=== PATIENT | male | born 1955 | race Caucasian/White ===

== ENCOUNTER → 2018-08-04 16:54 | Outpatient (CLI) | payer MEDICARE, SELFPAY ==
[2018-08-04 18:00] LABS: Absolute Lymphocyte Count 2.43 X10^3/ul (0.83-4.51); Absolute Neutrophil Count 3.5 X10^3/uL (2.0-7.7); Basophil# 0.06 X10^3/uL; Basophil% 0.9 % (0-1); Eosinophil# 0.19 X10^3/uL; Eosinophils% 2.8 % (0-5); Hematocrit 39.8 % (40-54); Hemoglobin 13.4 g/dl (13.0-16.5); Lymphocyte # 2.43 X10^3/ul (4.0); Lymphocyte % 36.1 % (19-41); Mean Corp Hgb Conc 33.7 g/gl (32-36); Mean Corpuscular Hgb 31.5 pg (27.0-32.0); Mean Corpuscular Volume 93.4 fL (80-94); Mean Platelet Vol. 12.4 fl (6.2-12.0); Monocyte# 0.54 X10^3/uL; Neutrophil # 3.49 X10^3/uL (2.7-7.7); Neutrophil % 51.9 % (47-70); Platelet Count 163 K/mm3 (150-450); RBC Distribution Width CV 13.3 % (11.6-14.6); RBC Distribution Width SD 43.8 fl (35.1-43.9); Red Blood Count 4.26 M/mm3 (4.6-6.2); White Blood Count 6.7 K/mm3 (4.4-11.0)
[2018-08-04 18:07] LABS: POSITIVE COUNT NO; POSITIVE DIFFERENTIAL NO; POSITIVE MORPHOLOGY NO
[2018-08-04 18:30] LABS: Erythrocyte Sedimentation Rate 17 mm/hr (0-20)
[2018-08-04 18:46] LABS: ALB/GLOB Ratio 0.9 RATIO (0.9-2.4); AST(SGOT) 40 U/L (15-37); Alanine Aminotransfer ALT/SGPT 46 U/L (16-61); Albumin, Serum 3.3 g/dL (3.2-5.0); Alkaline Phosphatase 159 U/L (45-117); Anion Gap 8 (5-15); BUN 23 mg/dL (7-18); CPK Total, Creatine Kinase 84 U/L (39-308); Calcium,Total 8.9 mg/dL (8.5-10.1); Chloride 106 mmol/L (98-107); Cholesterol 123 mg/dL (200); Creatinine, Serum 1.28 mg/dL (0.70-1.30); EST Glomerular Filtration Rate 60 mL/min (>60); Est Glom Filt Rate - Afr Amer 73 mL/min (>60); Globulin 3.6 g/dL (2.2-4.2); Glucose 241 mg/dL (74-106); High Density Lipoprotein 24 mg/dL; Protein, Total 6.9 g/dL (6.4-8.2); Sodium Level 142 mmol/L (136-145); Thyroid Stim Hormone (TSH) 1.86 uIU/mL (0.358-3.74); Triglycerides 326 mg/dL; Very Low Density Lipoprotein 65 mg/dL (5-40)
--- OUTSIDE RECORDS SUMMARY | 2018-09-21 02:09 | XMS RPT_ITS ---
:1955 Author Organization [facility] Care Team Providers Name Role Phone PREM BORREGO DO Admitting Unavailable PREM BORREGO DO Attending Unavailable PREM BORREGO DO Primary Care Unavailable HOLDEN HERRERA Consulting Unavailable HOLDEN HERRERA A Referring Unavailable PROVIDER, UNKNOWN Consulting Unavailable AKASH HEATH, AGUSTIN Chino Admitting Unavailable AKASH HEATH, AGUSTIN Chino Attending Unavailable JACQUES KELLEY MD, JOANNE SANTIAGO Consulting Unavailable ZAIN DAVALOS MD Consulting Unavailable NEYDA HEATH, TUCKER Madden Consulting Unavailable AKASH HEATH, AGUSTIN Chino Consulting Unavailable Holden Herrera Attending Unavailable PROBLEMS PROBLEMS DATE TYPE CONDITION / CODE ATTENDING STATUS SOURCE 08/04/2018 Unknown 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 Herrera Active [facility] 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 Repository neurological complication / E11.49(ICD-10) 08/04/2018 Unknown I10 - Essential Holden Herrera Active [facility] (primary) Community hypertension / Hospital I10(ICD-10) Repository 08/04/2018 Unknown E78.5 - SharonHolden veronica Active [facility] Hyperlipidemia, Community unspecified / Hospital E78.5(ICD-10) Repository 08/04/2018 Unknown R53.1 - Weakness / SharonHolden Active [facility] R53.1(ICD-10) Community Hospital Repository 08/04/2018 Unknown M79.10 - Myalgia, SharonHolden Active [facility] unspecified site / Community M79.10(ICD-10) Hospital Repository PROCEDURES PROCEDURES No Procedure Records FoundRESULTS RESULTS LAC Collected: 09/17/2018 Status: F Source: [facility] 12:24 AM [facility] REPOSITORY TYPE CODE TESTS RESULT OUT OF REFERENCE UNITS RANGE LAB LAC(LOINC) 0.2-2.0 mmol/L High Lactic Acid 2.1 Lvl Performed By: #### LAC, NA, TROPI #### [place] [address] NA Collected: 09/17/2018 Status: F Source: [facility] 12:24 AM [facility] REPOSITORY TYPE CODE TESTS RESULT OUT OF REFERENCE UNITS RANGE LAB NA(LOINC) 136-145 mEq/L High Sodium Level 150 Performed By: #### LAC, NA, TROPI #### [place] [address] TROPI Collected: 09/17/2018 Status: F Source: [facility] 12:24 AM [facility] REPOSITORY TYPE CODE TESTS RESULT OUT OF REFERENCE UNITS RANGE LAB TROPI(LOINC 0.000-0.040 ng/mL ) High Troponin I 1.380 Result Comment: Troponin I reference ranges (05/03/14): 0.00-0.040 ng/mL Negative and non-diagnostic. >0.040 ng/mL Consistent with cardiac damage, increased clinical risk and possibility of myocardial infarction. Serial measurements, a rise & fall in test results, clinical history, appropriate symptoms and/or ECG changes may help assess possibility of MO. *Other non-acute coronary syndrome conditions such as CHF, myocarditis, pulmonary emboli, sepsis and cardiac surgery could result in myocardial damage and increased troponin levels. Performed By: #### LAC, NA, TROPI #### [place] [address] LAC Collected: 09/16/2018 Status: F Source: [facility] 6:48 PM [facility] REPOSITORY TYPE CODE TESTS RESULT OUT OF REFERENCE UNITS RANGE LAB LAC(LOINC) 0.2-2.0 mmol/L Lactic Acid 1.2 Lvl Performed By: #### LAC, NA, TROPI #### [place] [address] NA Collected: 09/16/2018 Status: F Source: [facility] 6:48 PM [facility] REPOSITORY TYPE CODE TESTS RESULT OUT OF REFERENCE UNITS RANGE LAB NA(LOINC) 136-145 mEq/L High Sodium Level 152 Performed By: #### LAC, NA, TROPI #### [address] [address] TROPI Collected: 09/16/2018 Status: F Source: [facility] 6:48 PM [facility] REPOSITORY TYPE CODE TESTS RESULT OUT OF REFERENCE UNITS RANGE LAB TROPI(LOINC 0.000-0.040 ng/mL ) High Troponin I 1.520 Result Comment: Troponin I reference ranges (05/03/14): 0.00-0.040 ng/mL Negative and non-diagnostic. >0.040 ng/mL Consistent with cardiac damage, increased clinical risk and possibility of myocardial infarction. Serial measurements, a rise & fall in test results, clinical history, appropriate symptoms and/or ECG changes may help assess possibility of MO. *Other non-acute coronary syndrome conditions such as CHF, myocarditis, pulmonary emboli, sepsis and cardiac surgery could result in myocardial damage and increased troponin levels. Performed By: #### LAUREN NA, TROPI #### [place] [address] Observed: 09/16/2018 Status: F Source: [facility] 5:47 PM [facility] REPOSITORY . MICRO - Microbiology PROCEDURE: Legionella Urine Ag [*1] SOURCE: Urine BODY SITE: COLLECTED DATE/TIME: 09/16/2018 17:47 EST RECEIVED DATE/TIME: 09/16/2018 18:27 EST START DATE/TIME: 09/16/2018 18:27 EST FREE TEXT SOURCE: FINAL REPORTS Final Report [] Verified Date/Time/Personnel: 09/16/2018 19:18 EST Presumptive negative for L. pneumophila serogroup 1 antigen in urine, suggesting no recent or current infection. Legionnaire's disease cannot be ruled out since other serogroups and species may also cause disease. Performing Locations *1: This test was performed at: [facility], [address] [place] [address], [facility]- , [facility] Performed By: #### RASHARD #### [address] [address] LAC Collected: 09/16/2018 Status: F Source: [facility] 2:50 PM [facility] REPOSITORY TYPE CODE TESTS RESULT OUT OF REFERENCE UNITS RANGE LAB LAC(LOINC) 0.2-2.0 mmol/L Lactic Acid 2.0 Lvl Performed By: #### LAC, NA, TROPI #### [place] [address] NA Collected: 09/16/2018 Status: F Source: [facility] 2:50 PM [facility] REPOSITORY TYPE CODE TESTS RESULT OUT OF REFERENCE UNITS RANGE LAB NA(LOINC) 136-145 mEq/L High Sodium Level 150 Performed By: #### LAC, NA, TROPI #### [place] [address] TROPI Collected: 09/16/2018 Status: F Source: [facility] 2:50 [facility] REPOSITORY TYPE CODE TESTS RESULT OUT OF REFERENCE UNITS RANGE LAB TROPI(LOINC 0.000-0.040 ng/mL ) High Troponin I 1.590 Result Comment: Troponin I reference ranges (05/03/14): 0.00-0.040 ng/mL Negative and non-diagnostic. >0.040 ng/mL Consistent with cardiac damage, increased clinical risk and possibility of myocardial infarction. Serial measurements, a rise & fall in test results, clinical history, appropriate symptoms and/or ECG changes may help assess possibility of MO. *Other non-acute coronary syndrome conditions such as CHF, myocarditis, pulmonary emboli, sepsis and cardiac surgery could result in myocardial damage and increased troponin levels. Performed By: #### LAC, NA, TROPI #### [place] [address] LAC Collected: 09/16/2018 Status: F Source: [facility] 12:03 PM [facility] REPOSITORY TYPE CODE TESTS RESULT OUT OF REFERENCE UNITS RANGE LAB LAC(LOINC) 0.2-2.0 mmol/L Lactic Acid 1.9 Lvl Performed By: #### LAC, TROPI, NA #### [place] [address] TROPI Collected: 09/16/2018 Status: F Source: [facility] 12:03 PM [facility] REPOSITORY TYPE CODE TESTS RESULT OUT OF REFERENCE UNITS RANGE LAB TROPI(LOINC 0.000-0.040 ng/mL ) High Troponin I 1.490 Result Comment: Troponin I reference ranges (05/03/14): 0.00-0.040 ng/mL Negative and non-diagnostic. >0.040 ng/mL Consistent with cardiac damage, increased clinical risk and possibility of myocardial infarction. Serial measurements, a rise & fall in test results, clinical history, appropriate symptoms and/or ECG changes may help assess possibility of MO. *Other non-acute coronary syndrome conditions such as CHF, myocarditis, pulmonary emboli, sepsis and cardiac surgery could result in myocardial damage and increased troponin levels. Performed By: #### LAC, TROPI, NA #### [place] [address] NA Collected: 09/16/2018 Status: F Source: [facility] 12:03 PM [facility] REPOSITORY TYPE CODE TESTS RESULT OUT OF REFERENCE UNITS RANGE LAB NA(LOINC) 136-145 mEq/L High Sodium Level 149 Performed By: #### LAC, TROPI, NA #### [place] [address] HIV Collected: 09/16/2018 Status: F Source: [facility] 12:03 PM [facility] REPOSITORY TYPE CODE TESTS RESULT OUT OF RANGE REFERENCE UNITS LAB HIV(LOINC) Negative HIV 1/2 Ab Result Comment: Negative Specimen is negative for anti-HIV-1 and anti-HIV-2. Performed By: #### HIV #### [place] [address] LAC Collected: 09/16/2018 Status: F Source: [facility] 7:17 AM [facility] REPOSITORY TYPE CODE TESTS RESULT OUT OF REFERENCE UNITS RANGE LAB LAC(LOINC) 0.2-2.0 mmol/L Lactic Acid 1.7 Lvl Performed By: #### LAC, NA, TROPI #### [place] [address] NA Collected: 09/16/2018 Status: F Source: [facility] 7:17 AM [facility] REPOSITORY TYPE CODE TESTS RESULT OUT OF REFERENCE UNITS RANGE LAB NA(LOINC) 136-145 mEq/L High Sodium Level 153 Performed By: #### LAC, NA, TROPI #### [place] [address] TROPI Collected: 09/16/2018 Status: F Source: [facility] 7:17 AM [facility] REPOSITORY TYPE CODE TESTS RESULT OUT OF REFERENCE UNITS RANGE LAB TROPI(LOINC 0.000-0.040 ng/mL ) High Troponin I 1.690 Result Comment: Troponin I reference ranges (05/03/14): 0.00-0.040 ng/mL Negative and non-diagnostic. >0.040 ng/mL Consistent with cardiac damage, increased clinical risk and possibility of myocardial infarction. Serial measurements, a rise & fall in test results, clinical history, appropriate symptoms and/or ECG changes may help assess possibility of MO. *Other non-acute coronary syndrome conditions such as CHF, myocarditis, pulmonary emboli, sepsis and cardiac surgery could result in myocardial damage and increased troponin levels. Performed By: #### LAC, NA, TROPI #### [address] RENAL Observed: 09/16/2018 Status: F Source: [facility] 6:00 AM [facility] REPOSITORY ORIGINAL Complete ultrasound of the retroperitoneum with attention of the kidneys HISTORY: Renal stones, question hydronephrosis COMPARISON: CT scan 09/14/2018 RIGHT kidney length: 11.1 cm LEFT kidney length: 11.6 cm Note: The study is difficult. Technologist note indicates that the patient is in restraints and is incoherent. There is an echogenic focus at the RIGHT lower pole kidney most compatible with a stone, better seen on the previous CT scan. This is on the order of 7 mm in size. There is no left-sided nephrolithiasis present. No collecting system dilatation or perinephric fluid seen. The bladder is catheterized and collapsed and not readily evaluated. No free fluid is evident. IMPRESSION: RIGHT nephrolithiasis, no collecting system dilatation seen. Interpreted By: Sky Burgess MD Preliminary Report By: Sky Burgess MD Electronically Signed By: Sky Burgess MD Dictated Date: 09/16/2018 3:19:25 PM Prelim Date: 09/16/2018 3:19:25 PM Sign Date: 09/16/2018 3:21:49 PM LAC Collected: 09/16/2018 Status: F Source: [facility] 3:38 AM [facility] REPOSITORY TYPE CODE TESTS RESULT OUT OF REFERENCE UNITS RANGE LAB LAC(LOINC) 0.2-2.0 mmol/L High Lactic Acid 2.8 Lvl Performed By: #### LAC, CBC, ADIFF, ANEU, BMP, GFR, TROPI, LIPID, HFP #### [place] [id number] CBC Collected: 09/16/2018 Status: F Source: [facility] 3:38 AM [facility] REPOSITORY TYPE CODE TESTS RESULT OUT OF REFERENCE UNITS RANGE LAB WBC(LOINC) 4.50-10.80 10 3/mcL High WBC 13.20 LAB RBCCT(LOINC 4.50-6.00 10 6/mcL ) Low RBC 4.21 LAB HGB(LOINC) 13.0-17.5 G/dL Hgb 13.0 LAB HCT(LOINC) 40.0-52.0 % Low Hct 39.4 LAB MCV(LOINC) 81.0-100.0 fL MCV 93.6 LAB MCH(LOINC) 27.0-33.0 pg MCH 31.0 LAB MCHC(LOINC) 32.0-36.0 G/dL MCHC 33.1 LAB RDW(LOINC) 11.5-15.5 % RDW 14.1 LAB PLT(LOINC) 150-450 10 3/mcL Low Platelet 127 LAB MPV(LOINC) 6.4-10.5 fL MPV 10.2 Performed By: #### LAC, CBC, ADIFF, ANEU, BMP, GFR, TROPI, LIPID, HFP #### [address] [address] .AUTO DIFF Collected: 09/16/2018 Status: F Source: [facility] 3:38 [facility] [place] REPOSITORY TYPE CODE TESTS RESULT OUT OF REFERENCE UNITS RANGE LAB JAIME(LOINC) 50.0-75.0 % High Neutrophil % 77.5 LAB LYM(LOINC) 20.0-40.0 % Low Lymphocyte % 17.1 LAB MON(LOINC) 2.0-13.0 % Monocyte % 5.1 LAB EO(LOINC) 0.0-6.0 % Eosinophil % 0.0 LAB BAS(LOINC) 0.0-2.5 % Basophil % 0.3 LAB ABLYM(LOIN 0.90-4.32 10 3/mcL C) Lymphocyte, 2.30 Absolute LAB KEVON(LOINC 0.09-1.40 10 3/mcL ) Monocyte, 0.70 Absolute LAB AEOS(LOINC 0.00-0.65 10 3/mcL ) Eosinophil, 0.00 Absolute LAB ABAS(LOINC 0.00-0.27 10 3/mcL ) Basophil, 0.00 Absolute Performed By: #### LAC, CBC, ADIFF, ANEU, BMP, GFR, TROPI, LIPID, HFP #### [address] [address] .NEUABS Collected: 09/16/2018 Status: F Source: [facility] 3:38 AM [facility] REPOSITORY TYPE CODE TESTS RESULT OUT OF REFERENCE UNITS RANGE LAB ANEU(LOINC) 2.25-8.10 10 3/mcL High Neutrophil, 10.20 Absolute Performed By: #### LAC, CBC, ADIFF, ANEU, BMP, GFR, TROPI, LIPID, HFP #### [place] [address] BMP Collected: 09/16/2018 Status: F Source: [facility] 3:38 AM [facility] REPOSITORY TYPE CODE TESTS RESULT OUT OF REFERENCE UNITS RANGE LAB GLU(LOINC) 82-115 mg/dL Glucose High Level 198 LAB NA(LOINC) 136-145 mEq/L Sodium High Level 153 LAB K(LOINC) 3.5-5.0 mEq/L Low Potassium Level 3.2 LAB CL(LOINC) 98-110 mEq/L Chloride High 119 LAB CO2(LOINC) 22-32 mEq/L CO2 27 LAB EBAL(LOINC 4.0-15.0 mEq/L ) Electrolyte Balance 7.0 LAB BUN(LOINC) 8.0-22.0 mg/dL BUN High 49.0 LAB CRE(LOINC) 0.60-1.40 mg/dL Creatinine High Lvl (s) 1.45 LAB BC(LOINC) 10.0-22.0 ratio High BUN/Creatinine 33.8 Ratio LAB CA(LOINC) 8.4-10.1 mg/dL Low Calcium Lvl 7.9 Performed By: #### LAC, CBC, ADIFF, ANEU, BMP, GFR, TROPI, LIPID, HFP #### [address] [address] .GFR Collected: 09/16/2018 Status: F Source: [facility] 3:38 AM [facility] REPOSITORY TYPE CODE TESTS RESULT OUT OF REFERENCE UNITS RANGE LAB GFRAA(LOINC ml/min/1.73 ) sqm GFR 59 [place] Result Comment: GFR Population mean for , Non- Americans Ages 20-29 = 116 mL/min/1.73 sq.m. Ages 30-39 = 107 mL/min/1.73 sq.m. Ages 40-49 = 99 mL/min/1.73 sq.m. Ages 50-59 = 93 mL/min/1.73 sq.m. Ages 60-69 = 85 mL/min/1.73 sq.m. Ages 70+ = 75 mL/min/1.73 sq.m. Chronic Kidney Disease: Less than 60 mL/min/1.73 square meters End Stage Renal Disease: Less than 15 mL/min/1.73 square meters LAB GFRNO(LOINC) ml/min/1.73sqm GFR Non- 49 Result Comment: GFR Population mean for , Non- Americans Ages 20-29 = 116 mL/min/1.73 sq.m. Ages 30-39 = 107 mL/min/1.73 sq.m. Ages 40-49 = 99 mL/min/1.73 sq.m. Ages 50-59 = 93 mL/min/1.73 sq.m. Ages 60-69 = 85 mL/min/1.73 sq.m. Ages 70+ = 75 mL/min/1.73 sq.m. Chronic Kidney Disease: Less than 60 mL/min/1.73 square meters End Stage Renal Disease: Less than 15 mL/min/1.73 square meters Performed By: #### LAC, CBC, ADIFF, ANEU, BMP, GFR, TROPI, LIPID, HFP #### [place] [address] TROPI Collected: 09/16/2018 Status: F Source: [facility] 3:38 AM [facility] REPOSITORY TYPE CODE TESTS RESULT OUT OF REFERENCE UNITS RANGE LAB TROPI(LOINC 0.000-0.040 ng/mL ) High Troponin I 1.610 Result Comment: Troponin I reference ranges (05/03/14): 0.00-0.040 ng/mL Negative and non-diagnostic. >0.040 ng/mL Consistent with cardiac damage, increased clinical risk and possibility of myocardial infarction. Serial measurements, a rise & fall in test results, clinical history, appropriate symptoms and/or ECG changes may help assess possibility of MO. *Other non-acute coronary syndrome conditions such as CHF, myocarditis, pulmonary emboli, sepsis and cardiac surgery could result in myocardial damage and increased troponin levels. Performed By: #### LAC, CBC, ADIFF, ANEU, BMP, GFR, TROPI, LIPID, HFP #### [address] [address] LIPID Collected: 09/16/2018 Status: F Source: [facility] 3:38 AM [facility] REPOSITORY TYPE CODE TESTS RESULT OUT OF REFERENCE UNITS RANGE LAB CHOL(LOINC 50-199 mg/dL ) Cholesterol 130 Result Comment: Cholesterol Reference Interval: Less than 200 Desirable 200-239 Borderline high risk 240 and above High risk LAB TRIG(LOINC) 3-149 mg/dL Triglycerides High 204 Result Comment: Triglyceride Reference Interval: Less than 150 Normal 150-199 Borderline high risk 200-499 High risk 500 or higher Very high risk LAB HD(LOINC) 40-59 mg/dL HDL Low Cholesterol 37 Result Comment: HDL Reference Interval: Less than 40 Low - high risk 60 or above Optimal/lowers risk LAB LDL(LOINC) 0-129 mg/dL LDL Cholesterol 52 Result Comment: LDL is a calculated result and requires a 12-hr fast. LDL Reference Interval: Less than 100 Optimal 100-129 Near or above optimal 130-159 Borderline high risk 160-189 High risk 190 and above Very high risk Performed By: #### LAC, CBC, ADIFF, ANEU, BMP, GFR, TROPI, LIPID, HFP #### [address] [address] HFP Collected: 09/16/2018 Status: F Source: [facility] 3:38 AM [facility] REPOSITORY TYPE CODE TESTS RESULT OUT OF REFERENCE UNITS RANGE LAB PROT(LOINC) 6.0-8.5 G/dL Low Total Protein 5.9 LAB ALB(LOINC) 3.2-4.8 G/dL Low Albumin Level 2.6 LAB GLB(LOINC) 1.5-3.8 G/dL Globulin 3.3 LAB AG(LOINC) 0.9-1.6 ratio Low A/G Ratio 0.8 LAB BILT(LOINC) 0.2-1.2 mg/dL Bili Total 0.3 LAB BILAD(LOINC 0.0-0.4 mg/dL ) Bili Direct 0.1 LAB BILI(LOINC) 0.1-10.0 mg/dL Bili Indirect 0.2 LAB AP(LOINC) 38-126 U/L Alk Phos 115 LAB AST(LOINC) 8-34 U/L High AST/SGOT 449 LAB ALT(LOINC) 12-55 U/L High ALT/SGPT 133 Performed By: #### LAC, CBC, ADIFF, ANEU, BMP, GFR, TROPI, LIPID, HFP #### [place] [address] LAC Collected: 09/15/2018 Status: F Source: [facility] 10:20 PM [facility] REPOSITORY TYPE CODE TESTS RESULT OUT OF REFERENCE UNITS RANGE LAB LAC(LOINC) 0.2-2.0 mmol/L High Lactic Acid 2.2 Lvl Performed By: #### LAC, TROPI #### [place] [address] TROPI Collected: 09/15/2018 Status: F Source: [facility] 10:20 PM [facility] REPOSITORY TYPE CODE TESTS RESULT OUT OF REFERENCE UNITS RANGE LAB TROPI(LOINC 0.000-0.040 ng/mL ) High Troponin I 1.800 Result Comment: Troponin I reference ranges (05/03/14): 0.00-0.040 ng/mL Negative and non-diagnostic. >0.040 ng/mL Consistent with cardiac damage, increased clinical risk and possibility of myocardial infarction. Serial measurements, a rise & fall in test results, clinical history, appropriate symptoms and/or ECG changes may help assess possibility of MO. *Other non-acute coronary syndrome conditions such as CHF, myocarditis, pulmonary emboli, sepsis and cardiac surgery could result in myocardial damage and increased troponin levels. Performed By: #### LAC, TROPI #### [address] [address] BMP Collected: 09/15/2018 Status: F Source: [facility] 10:20 PM [facility] REPOSITORY TYPE CODE TESTS RESULT OUT OF RANGE REFERENCE UNITS LAB GLU(LOINC) 82-115 mg/dL Glucose Abnormal Level 453 Alert LAB NA(LOINC) 136-145 mEq/L High Sodium Level 148 LAB K(LOINC) 3.5-5.0 mEq/L Potassium Level 3.9 LAB CL(LOINC) 98-110 mEq/L High Chloride 116 LAB CO2(LOINC) 22-32 mEq/L CO2 23 LAB EBAL(LOINC 4.0-15.0 mEq/L ) Electrolyte Balance 9.0 LAB BUN(LOINC) 8.0-22.0 mg/dL High BUN 52.0 LAB CRE(LOINC) 0.60-1.40 mg/dL High Creatinine Lvl (s) 1.60 LAB BC(LOINC) 10.0-22.0 ratio High BUN/Creatinine 32.5 Ratio LAB CA(LOINC) 8.4-10.1 mg/dL Low Calcium Lvl 7.3 Performed By: #### BMP, GFR #### [facility] [address] [place] [address] .GFR Collected: 09/15/2018 Status: F Source: [facility] 10:20 PM [facility] REPOSITORY TYPE CODE TESTS RESULT OUT OF REFERENCE UNITS RANGE LAB GFRAA(LOINC ml/min/1.73 ) sqm GFR 53 [place] Result Comment: GFR Population mean for , Non- Americans Ages 20-29 = 116 mL/min/1.73 sq.m. Ages 30-39 = 107 mL/min/1.73 sq.m. Ages 40-49 = 99 mL/min/1.73 sq.m. Ages 50-59 = 93 mL/min/1.73 sq.m. Ages 60-69 = 85 mL/min/1.73 sq.m. Ages 70+ = 75 mL/min/1.73 sq.m. Chronic Kidney Disease: Less than 60 mL/min/1.73 square meters End Stage Renal Disease: Less than 15 mL/min/1.73 square meters LAB GFRNO(LOINC) ml/min/1.73sqm GFR Non- 44 Result Comment: GFR Population mean for , Non- Americans Ages 20-29 = 116 mL/min/1.73 sq.m. Ages 30-39 = 107 mL/min/1.73 sq.m. Ages 40-49 = 99 mL/min/1.73 sq.m. Ages 50-59 = 93 mL/min/1.73 sq.m. Ages 60-69 = 85 mL/min/1.73 sq.m. Ages 70+ = 75 mL/min/1.73 sq.m. Chronic Kidney Disease: Less than 60 mL/min/1.73 square meters End Stage Renal Disease: Less than 15 mL/min/1.73 square meters Performed By: #### BMP, GFR #### [place] [address] LAC Collected: 09/15/2018 Status: F Source: [facility] 6:54 PM [facility] REPOSITORY TYPE CODE TESTS RESULT OUT OF REFERENCE UNITS RANGE LAB LAC(LOINC) 0.2-2.0 mmol/L Lactic Acid 1.5 Lvl Performed By: #### LAC, NA, TROPI #### [place] [address] NA Collected: 09/15/2018 Status: F Source: [facility] 6:54 [facility] REPOSITORY TYPE CODE TESTS RESULT OUT OF REFERENCE UNITS RANGE LAB NA(LOINC) 136-145 mEq/L High Sodium Level 154 Performed By: #### LAC, NA, TROPI #### [place] [address] TROPI Collected: 09/15/2018 Status: F Source: [facility] 6:54 [facility] REPOSITORY TYPE CODE TESTS RESULT OUT OF REFERENCE UNITS RANGE LAB TROPI(LOINC 0.000-0.040 ng/mL ) High Troponin I 1.850 Result Comment: Troponin I reference ranges (05/03/14): 0.00-0.040 ng/mL Negative and non-diagnostic. >0.040 ng/mL Consistent with cardiac damage, increased clinical risk and possibility of myocardial infarction. Serial measurements, a rise & fall in test results, clinical history, appropriate symptoms and/or ECG changes may help assess possibility of MO. *Other non-acute coronary syndrome conditions such as CHF, myocarditis, pulmonary emboli, sepsis and cardiac surgery could result in myocardial damage and increased troponin levels. Performed By: #### LAC, NA, TROPI #### [place] [address] APTT Collected: 09/15/2018 Status: F Source: [facility] 6:54 PM [facility] REPOSITORY TYPE CODE TESTS RESULT OUT OF REFERENCE UNITS RANGE LAB PDOSE(LOIN C) Heparin dose Heparin IV (APTT) LAB APTT0(LOIN 25.0-35.0 seconds C) High APTT 62.1 Result Comment: For Heparin anticoagulation therapy, the recommended therapeutic range is: 54-77 seconds (APTT Correlation with Anti-Xa therapeutic range of 0.3-0.7 units/ml). PLEASE REFERENCE THE PHARMACY PROTOCOL FOR DOSING. Performed By: #### APTT #### [address] [address] UA Collected: 09/15/2018 Status: F Source: [facility] 6:26 PM [facility] REPOSITORY TYPE CODE TESTS RESULT OUT OF RANGE REFERENCE UNITS LAB SPCUA(ARGENIS NC) UA Specimen Type Catheter LAB CLRUA(ARGENIS NC) UA Color Dark Yellow LAB APPUA(ARGENIS Clear NC) UA Appear Unknown Cloudy LAB SGUA(LOIN 1.006-1.029 C) UA Spec Grav 1.025 LAB GLUA(LOIN Negative mg/dL C) UA Glucose Unknown >=1000 LAB BILUA(ARGENIS Neg-Trace NC) UA Bili Negative LAB KETUA(ARGENIS Neg-Trace mg/dL NC) UA Ketones Unknown 40 LAB BLDUA(ARGENIS Neg-Trace NC) UA Blood Unknown Large LAB PHUA(LOIN 5.0 - 8.0 C) UA pH 5.0 LAB PROUA(ARGENIS Negative mg/dL NC) UA Protein 30 LAB UROUA(ARGENIS 0.2-1.0 E.U./dL NC) UA Urobilinogen 0.2 LAB NITUA(ARGENIS Negative NC) UA Nitrite Negative LAB LEUUA(ARGENIS Negative NC) UA Leuk Est Unknown Small Performed By: #### UA, UAMIC #### [address] [address] UAMIC Collected: 09/15/2018 Status: F Source: [facility] 6:26 PM [facility] REPOSITORY TYPE CODE TESTS RESULT OUT OF RANGE REFERENCE UNITS LAB RBCUA(LOIN 0-2 /hpf C) UA RBC Unknown 50-100 LAB WBCUA(LOIN 0-5 /hpf C) UA WBC Unknown 5-10 LAB EPIUA(LOIN 0-20 /hpf C) UA Squam Epithelial 0-2 LAB TEPUA(LOIN /hpf C) UA Transitional 0-2 Epithelial LAB REPUA(LOIN /hpf C) UA Renal Epithelial Rare LAB MUCUA(LOIN /hpf C) UA Mucous Trace LAB AMOUA(LOIN /hpf C) UA Amorphus 1+ LAB CGRNC(LOIN /lpf C) UA Coarse Unknown Granular Casts 3-5 LAB BGRNC(LOIN /lpf C) UA Broad Unknown Granular Casts 0-2 Performed By: #### UA, UAMIC #### [place] [address] Observed: 09/15/2018 Status: P Source: [facility] 6:26 PM [facility] REPOSITORY . MICRO - Microbiology PROCEDURE: Urine Culture [*1] SOURCE: Urine, Reed Catheter BODY SITE: COLLECTED DATE/TIME: 09/15/2018 18:26 EST RECEIVED DATE/TIME: 09/15/2018 18:34 EST START DATE/TIME: 09/15/2018 18:34 EST FREE TEXT SOURCE: PRELIMINARY REPORTS Preliminary Report [] Verified Date/Time/Personnel: 09/16/2018 08:16 EST No growth to date Performing Locations *1: This test was performed at: [address], [address] [place] [address] Performed By: #### CUR #### [place] [address] LAC Collected: 09/15/2018 Status: F Source: [facility] 3:47 [facility] REPOSITORY TYPE CODE TESTS RESULT OUT OF REFERENCE UNITS RANGE LAB LAC(LOINC) 0.2-2.0 mmol/L Lactic Acid 1.6 Lvl Performed By: #### LAC, NA, TROPI #### [place] [address] NA Collected: 09/15/2018 Status: F Source: [facility] 3:47 PM [facility] REPOSITORY TYPE CODE TESTS RESULT OUT OF REFERENCE UNITS RANGE LAB NA(LOINC) 136-145 mEq/L High Sodium Level 154 Performed By: #### LAC, NA, TROPI #### [place] [address] TROPI Collected: 09/15/2018 Status: F Source: [facility] 3:47 PM [facility] REPOSITORY TYPE CODE TESTS RESULT OUT OF REFERENCE UNITS RANGE LAB TROPI(LOINC 0.000-0.040 ng/mL ) High Troponin I 1.920 Result Comment: Troponin I reference ranges (05/03/14): 0.00-0.040 ng/mL Negative and non-diagnostic. >0.040 ng/mL Consistent with cardiac damage, increased clinical risk and possibility of myocardial infarction. Serial measurements, a rise & fall in test results, clinical history, appropriate symptoms and/or ECG changes may help assess possibility of MO. *Other non-acute coronary syndrome conditions such as CHF, myocarditis, pulmonary emboli, sepsis and cardiac surgery could result in myocardial damage and increased troponin levels. Performed By: #### LAC, NA, TROPI #### [place] [address] Observed: 09/15/2018 Status: F Source: [facility] 12:47 PM [facility] REPOSITORY . MICRO - Microbiology PROCEDURE: Rapid Influenza A+B Screen w Cult if Ind [*1] SOURCE: Nasopharyngeal BODY SITE: COLLECTED DATE/TIME: 09/15/2018 12:47 EST RECEIVED DATE/TIME: 09/15/2018 13:03 EST START DATE/TIME: 09/15/2018 13:03 EST FREE TEXT SOURCE: FINAL REPORTS Final Report [] Verified Date/Time/Personnel: 09/15/2018 13:26 EST Specimen is negative for the presence of influenza A antigen. . Specimen is negative for the presence of influenza B antigen. . Inadequate specimen collection, improper sample handling and/or low levels of viral shedding may yield a false-negative result. . The optimal specimen type for the Rapid Flu test is a nasopharyngeal wash/aspirate or nasopharyngeal swab. All negative rapid tests for Flu A and Flu B will be confirmed with a Respiratory Id Panel by PCR. . Assay method employs immunofluorescence technology. Performing Locations *1: This test was performed at: [address] Performed By: #### RFLU #### [place] [address] LAC Collected: 09/15/2018 Status: F Source: [facility] 12:21 PM [facility] REPOSITORY TYPE CODE TESTS RESULT OUT OF REFERENCE UNITS RANGE LAB LAC(LOINC) 0.2-2.0 mmol/L High Lactic Acid 2.2 Lvl Performed By: #### LAC, NA, TROPI #### [place] [address] NA Collected: 09/15/2018 Status: F Source: [facility] 12:21 PM [facility] REPOSITORY TYPE CODE TESTS RESULT OUT OF REFERENCE UNITS RANGE LAB NA(LOINC) 136-145 mEq/L High Sodium Level 156 Performed By: #### LAC, NA, TROPI #### [place] [address] TROPI Collected: 09/15/2018 Status: F Source: [facility] 12:21 PM [facility] REPOSITORY TYPE CODE TESTS RESULT OUT OF REFERENCE UNITS RANGE LAB TROPI(LOINC 0.000-0.040 ng/mL ) High Troponin I 1.750 Result Comment: Troponin I reference ranges (05/03/14): 0.00-0.040 ng/mL Negative and non-diagnostic. >0.040 ng/mL Consistent with cardiac damage, increased clinical risk and possibility of myocardial infarction. Serial measurements, a rise & fall in test results, clinical history, appropriate symptoms and/or ECG changes may help assess possibility of MO. *Other non-acute coronary syndrome conditions such as CHF, myocarditis, pulmonary emboli, sepsis and cardiac surgery could result in myocardial damage and increased troponin levels. Performed By: #### LAC, NA, TROPI #### [place] [address] APTT Collected: 09/15/2018 Status: F Source: [facility] 12:21 PM [facility] REPOSITORY TYPE CODE TESTS RESULT OUT OF REFERENCE UNITS RANGE LAB PDOSE(LOIN C) Heparin dose Heparin IV (APTT) LAB APTT0(LOIN 25.0-35.0 seconds C) High APTT 61.7 Result Comment: For Heparin anticoagulation therapy, the recommended therapeutic range is: 54-77 seconds (APTT Correlation with Anti-Xa therapeutic range of 0.3-0.7 units/ml). PLEASE REFERENCE THE PHARMACY PROTOCOL FOR DOSING. Performed By: #### APTT #### [place] [address] RESPID Collected: 09/15/2018 Status: F Source: [facility] 11:59 AM [facility] REPOSITORY Order Comment: Order added by [id number] TYPE CODE TESTS RESULT OUT OF REFERENCE UNITS RANGE LAB RESADENO( Not Detected LOINC) Adenovirus Not Detected LAB COVHKU1(L Not Detected OINC) Coronavirus HKU1 Not Detected LAB COVNL63(L Not Detected OINC) Coronavirus NL63 Not Detected LAB [id number](L Not Detected OINC) Coronavirus 229E Not Detected LAB COVOC43(L Not Detected OINC) Coronavirus OC43 Not Detected LAB HMV(LOINC Not Detected ) Human Metapneumovirus Not Detected LAB INFA(LOIN Not Detected C) Influenza A Not Detected LAB INFAB(ARGENIS Not Detected NC) Influenza B Not Detected LAB PARAFLU1( Not Detected LOINC) Parainfluenza 1 Not Detected LAB PARAFLU2( Not Detected LOINC) Parainfluenza 2 Not Detected LAB PARAFLU3( Not Detected LOINC) Parainfluenza 3 Not Detected LAB PARAFLU4( Not Detected LOINC) Parainfluenza 4 Not Detected LAB RHINO(ARGENIS Not Detected NC) Rhinovirus/Enterovir us Not Detected LAB RESRSV(LO Not Detected INC) Respiratory Syncytial Virus Not Detected LAB RESMYCO(L Not Detected OINC) Mycoplasma pneumoniae Not Detected LAB RESCHLAM( Not Detected LOINC) Chlamydophila pneumoniae Not Detected LAB RESBORD(L Not Detected OINC) Bordetella Pertussis Not Detected LAB RESBPAR(L Not Detected OINC) Bordetella Parapertussis Not Detected Performed By: #### RESPID #### [place] [address] LAC Collected: 09/15/2018 Status: F Source: [facility] 7:29 [facility] [place] REPOSITORY TYPE CODE TESTS RESULT OUT OF REFERENCE UNITS RANGE LAB LAC(LOINC) 0.2-2.0 mmol/L High Lactic Acid 2.6 Lvl Performed By: #### LAC, NA, TROPI #### [place] [address] NA Collected: 09/15/2018 Status: F Source: [facility] 7:29 AM [facility] REPOSITORY TYPE CODE TESTS RESULT OUT OF REFERENCE UNITS RANGE LAB NA(LOINC) 136-145 mEq/L High Sodium Level 156 Performed By: #### LAC, NA, TROPI #### [place] [address] TROPI Collected: 09/15/2018 Status: F Source: [facility] 7:29 AM [facility] REPOSITORY TYPE CODE TESTS RESULT OUT OF REFERENCE UNITS RANGE LAB TROPI(LOINC 0.000-0.040 ng/mL ) High Troponin I 1.800 Result Comment: Troponin I reference ranges (05/03/14): 0.00-0.040 ng/mL Negative and non-diagnostic. >0.040 ng/mL Consistent with cardiac damage, increased clinical risk and possibility of myocardial infarction. Serial measurements, a rise & fall in test results, clinical history, appropriate symptoms and/or ECG changes may help assess possibility of MO. *Other non-acute coronary syndrome conditions such as CHF, myocarditis, pulmonary emboli, sepsis and cardiac surgery could result in myocardial damage and increased troponin levels. Performed By: #### LAC, NA, TROPI #### [place] [address] APTT Collected: 09/15/2018 Status: F Source: [facility] 5:39 AM [facility] TYPE CODE TESTS RESULT OUT OF REFERENCE UNITS RANGE LAB PDOSE(LOIN C) Heparin dose Unknown (APTT) LAB APTT0(LOIN 25.0-35.0 seconds C) APTT 25.5 Result Comment: For Heparin anticoagulation therapy, the recommended therapeutic range is: 54-77 seconds (APTT Correlation with Anti-Xa therapeutic range of 0.3-0.7 units/ml). PLEASE REFERENCE THE PHARMACY PROTOCOL FOR DOSING. Performed By: #### APTT, PRO #### [place] [id number] PRO Collected: 09/15/2018 Status: F Source: [facility] 5:39 AM [facility] REPOSITORY TYPE CODE TESTS RESULT OUT OF REFERENCE UNITS RANGE LAB PT(LOINC) 9.0-14.6 seconds High Protime 15.7 Result Comment: Effective 03/09/08, Protime results may be affected by some antibiotics (i.e. Ciprofloxacin, Azithromycin, Bactrim) which may potentiate the action of oral anticoagulants, with further increases in Protime/INR. LAB INR(LOINC) ratio PT International Ratio 1.3 Result Comment: The [place] [employer] (CHEST, 1992, [id number]) recommended therapeutic range for oral anticoagulant therapy is: LOW RISK: Prophylaxis of venous thrombosis INR: 2.0-3.0 Treatment of pulmonary embolism 2.0-3.0 Prevention of systemic embolism 2.0-3.0 HIGH RISK: Mechanical prosthetic valves 2.5-3.5 Performed By: #### APTT, PRO #### [address] [address] XR CHEST 1 VIEW Observed: 09/15/2018 Status: F Source: [facility] 5:04 AM [facility] REPOSITORY ORIGINAL Clinical history: Sepsis. COMPARISON: Chest x-ray 09/14/2018. Patient has had sternotomy. The heart size is normal. Lungs are well aerated with no infiltrate or pulmonary edema. There is no pleural fluid or pneumothorax. IMPRESSION: No acute chest process. Interpreted By: Vinh Jung MD Preliminary Report By: Vinh Jung MD Electronically Signed By: Vinh Jung MD Dictated Date: 09/15/2018 7:28:55 AM Prelim Date: 09/15/2018 7:28:55 AM Sign Date: 09/15/2018 7:29:32 AM LAC Collected: 09/15/2018 Status: F Source: [facility] 3:08 AM [facility] REPOSITORY TYPE CODE TESTS RESULT OUT OF REFERENCE UNITS RANGE LAB LAC(LOINC) 0.2-2.0 mmol/L Lactic Acid 1.9 Lvl Performed By: #### LAC, CBC, ADIFF, ANEU, CMP, GFR, TROPI, TSH, B12 #### [address] [address] CBC Collected: 09/15/2018 Status: F Source: [facility] 3:08 AM [facility] REPOSITORY TYPE CODE TESTS RESULT OUT OF REFERENCE UNITS RANGE LAB WBC(LOINC) 4.50-10.80 10 3/mcL High WBC 16.40 LAB RBCCT(LOINC 4.50-6.00 10 6/mcL ) RBC 4.59 LAB HGB(LOINC) 13.0-17.5 G/dL Hgb 14.3 LAB HCT(LOINC) 40.0-52.0 % Hct 42.7 LAB MCV(LOINC) 81.0-100.0 fL MCV 93.0 LAB MCH(LOINC) 27.0-33.0 pg MCH 31.2 LAB MCHC(LOINC) 32.0-36.0 G/dL MCHC 33.6 LAB RDW(LOINC) 11.5-15.5 % RDW 14.0 LAB PLT(LOINC) 150-450 10 3/mcL Platelet 160 LAB MPV(LOINC) 6.4-10.5 fL MPV 10.3 Performed By: #### LAUREN, CBC, ADIFF, ANEU, CMP, GFR, TROPI, TSH, B12 #### [address] [address] .AUTO DIFF Collected: 09/15/2018 Status: F Source: [facility] 3:08 AM [facility] REPOSITORY TYPE CODE TESTS RESULT OUT OF REFERENCE UNITS RANGE LAB JAIME(LOINC) 50.0-75.0 % High Neutrophil % 77.2 LAB LYM(LOINC) 20.0-40.0 % Low Lymphocyte % 14.6 LAB MON(LOINC) 2.0-13.0 % Monocyte % 7.8 LAB EO(LOINC) 0.0-6.0 % Eosinophil % 0.0 LAB BAS(LOINC) 0.0-2.5 % Basophil % 0.4 LAB ABLYM(LOIN 0.90-4.32 10 3/mcL C) Lymphocyte, 2.40 Absolute LAB KEVON(LOINC 0.09-1.40 10 3/mcL ) Monocyte, 1.30 Absolute LAB AEOS(LOINC 0.00-0.65 10 3/mcL ) Eosinophil, 0.00 Absolute LAB ABAS(LOINC 0.00-0.27 10 3/mcL ) Basophil, 0.10 Absolute Performed By: #### LAUREN, CBC, ADIFF, ANEU, CMP, GFR, TROPI, TSH, B12 #### [place] [address] .NEUABS Collected: 09/15/2018 Status: F Source: [facility] 3:08 AM [facility] REPOSITORY TYPE CODE TESTS RESULT OUT OF REFERENCE UNITS RANGE LAB ANEU(LOINC) 2.25-8.10 10 3/mcL High Neutrophil, 12.60 Absolute Performed By: #### LAC, CBC, ADIFF, ANEU, CMP, GFR, TROPI, TSH, B12 #### [address] [address] CMP Collected: 09/15/2018 Status: F Source: [facility] 3:08 AM [facility] REPOSITORY TYPE CODE TESTS RESULT OUT OF REFERENCE UNITS RANGE LAB GLU(LOINC) 82-115 mg/dL Glucose High Level 307 LAB NA(LOINC) 136-145 mEq/L Sodium High Level 155 LAB K(LOINC) 3.5-5.0 mEq/L Potassium Level 3.6 LAB CL(LOINC) 98-110 mEq/L Chloride High 120 LAB CO2(LOINC) 22-32 mEq/L CO2 25 LAB EBAL(LOINC 4.0-15.0 mEq/L ) Electrolyte Balance 10.0 LAB BUN(LOINC) 8.0-22.0 mg/dL BUN High 44.0 LAB CRE(LOINC) 0.60-1.40 mg/dL Creatinine High Lvl (s) 2.03 LAB BC(LOINC) 10.0-22.0 ratio BUN/Creatinine 21.7 Ratio LAB CA(LOINC) 8.4-10.1 mg/dL Low Calcium Lvl 7.7 LAB PROT(LOINC 6.0-8.5 G/dL ) Total Protein 6.8 LAB ALB(LOINC) 3.2-4.8 G/dL Low Albumin Level 3.0 LAB GLB(LOINC) 1.5-3.8 G/dL Globulin 3.8 LAB AG(LOINC) 0.9-1.6 ratio Low A/G Ratio 0.8 LAB BILT(LOINC 0.2-1.2 mg/dL ) Bili Total 0.3 LAB AP(LOINC) 38-126 U/L Alk Phos High 131 LAB AST(LOINC) 8-34 U/L AST/SGOT High 568 LAB ALT(LOINC) 12-55 U/L ALT/SGPT High 112 Performed By: #### LAC, CBC, ADIFF, ANEU, CMP, GFR, TROPI, TSH, B12 #### [place] [address] .GFR Collected: 09/15/2018 Status: F Source: [facility] 3:08 AM [facility] REPOSITORY TYPE CODE TESTS RESULT OUT OF REFERENCE UNITS RANGE LAB GFRAA(LOINC ml/min/1.73 ) sqm GFR 40 [place] Result Comment: GFR Population mean for , Non- Americans Ages 20-29 = 116 mL/min/1.73 sq.m. Ages 30-39 = 107 mL/min/1.73 sq.m. Ages 40-49 = 99 mL/min/1.73 sq.m. Ages 50-59 = 93 mL/min/1.73 sq.m. Ages 60-69 = 85 mL/min/1.73 sq.m. Ages 70+ = 75 mL/min/1.73 sq.m. Chronic Kidney Disease: Less than 60 mL/min/1.73 square meters End Stage Renal Disease: Less than 15 mL/min/1.73 square meters LAB GFRNO(LOINC) ml/min/1.73sqm GFR Non- 33 Result Comment: GFR Population mean for , Non- Americans Ages 20-29 = 116 mL/min/1.73 sq.m. Ages 30-39 = 107 mL/min/1.73 sq.m. Ages 40-49 = 99 mL/min/1.73 sq.m. Ages 50-59 = 93 mL/min/1.73 sq.m. Ages 60-69 = 85 mL/min/1.73 sq.m. Ages 70+ = 75 mL/min/1.73 sq.m. Chronic Kidney Disease: Less than 60 mL/min/1.73 square meters End Stage Renal Disease: Less than 15 mL/min/1.73 square meters Performed By: #### LAC, CBC, ADIFF, ANEU, CMP, GFR, TROPI, TSH, B12 #### [address] [address] TROPI Collected: 09/15/2018 Status: F Source: [facility] 3:08 AM [facility] REPOSITORY TYPE CODE TESTS RESULT OUT OF REFERENCE UNITS RANGE LAB TROPI(LOINC 0.000-0.040 ng/mL ) High Troponin I 1.610 Result Comment: Troponin I reference ranges (05/03/14): 0.00-0.040 ng/mL Negative and non-diagnostic. >0.040 ng/mL Consistent with cardiac damage, increased clinical risk and possibility of myocardial infarction. Serial measurements, a rise & fall in test results, clinical history, appropriate symptoms and/or ECG changes may help assess possibility of MO. *Other non-acute coronary syndrome conditions such as CHF, myocarditis, pulmonary emboli, sepsis and cardiac surgery could result in myocardial damage and increased troponin levels. Performed By: #### LAC, CBC, ADIFF, ANEU, CMP, GFR, TROPI, TSH, B12 #### [address] [address] TSH Collected: 09/15/2018 Status: F Source: [facility] 3:08 AM [facility] REPOSITORY TYPE CODE TESTS RESULT OUT OF RANGE REFERENCE UNITS LAB TSH(LOINC) 0.360-3.740 mcIU/mL TSH 1.480 Result Comment: Please note as of 03/09/17 new pediatric reference intervals were added for this test. Performed By: #### LAC, CBC, ADIFF, ANEU, CMP, GFR, TROPI, TSH, B12 #### [place] [address] B12 Collected: 09/15/2018 Status: F Source: [facility] 3:08 AM [facility] REPOSITORY TYPE CODE TESTS RESULT OUT OF REFERENCE UNITS RANGE LAB B12(LOINC) 211-911 pg/mL High Vitamin B12 1447 Lvl Performed By: #### LAC, CBC, ADIFF, ANEU, CMP, GFR, TROPI, TSH, B12 #### [place] [address] UA Collected: 09/14/2018 Status: F Source: [facility] 11:18 PM [facility] REPOSITORY TYPE CODE TESTS RESULT OUT OF RANGE REFERENCE UNITS LAB SPCUA(ARGENIS NC) UA Specimen Type Clean Catch LAB CLRUA(ARGENIS NC) UA Color Dark Yellow LAB APPUA(ARGENIS Clear NC) UA Appear Unknown Cloudy LAB SGUA(LOIN 1.006-1.029 C) UA Spec Grav 1.025 LAB GLUA(LOIN Negative mg/dL C) UA Glucose Negative LAB BILUA(ARGENIS Neg-Trace NC) UA Bili Negative LAB KETUA(ARGENIS Neg-Trace mg/dL NC) UA Ketones Negative LAB BLDUA(ARGENIS Neg-Trace NC) UA Blood Unknown Large LAB PHUA(LOIN 5.0 - 8.0 C) UA pH 5.0 LAB PROUA(ARGENIS Negative mg/dL NC) UA Protein Unknown 100 LAB UROUA(ARGENIS 0.2-1.0 E.U./dL NC) UA Urobilinogen 1.0 LAB NITUA(ARGENIS Negative NC) UA Nitrite Negative LAB LEUUA(ARGENIS Negative NC) UA Leuk Est Unknown Small Performed By: #### UA, UAMIC #### [place] [address] UAMIC Collected: 09/14/2018 Status: F Source: [facility] 11:18 [facility] REPOSITORY TYPE CODE TESTS RESULT OUT OF RANGE REFERENCE UNITS LAB RBCUA(LOIN 0-2 /hpf C) UA RBC Unknown LOADED LAB WBCUA(LOIN 0-5 /hpf C) UA WBC Unknown 10-20 LAB EPIUA(LOIN 0-20 /hpf C) UA Squam Epithelial 0-2 LAB TEPUA(LOIN /hpf C) UA Transitional 3-5 Epithelial LAB AMOUA(LOIN /hpf C) UA Amorphus 1+ LAB BACUA(LOIN Negative /hpf C) UA Bacteria Unknown Trace LAB CGRNC(LOIN /lpf C) UA Coarse Unknown Granular Casts 0-2 Performed By: #### UA, UAMIC #### [place] [address] LAC Collected: 09/14/2018 Status: F Source: [facility] 11:05 [facility] REPOSITORY TYPE CODE TESTS RESULT OUT OF REFERENCE UNITS RANGE LAB LAC(LOINC) 0.2-2.0 mmol/L High Lactic Acid 2.9 Lvl Performed By: #### LAC, NA, TROPI #### [place] [address] NA Collected: 09/14/2018 Status: F Source: [facility] 11:05 [facility] REPOSITORY TYPE CODE TESTS RESULT OUT OF REFERENCE UNITS RANGE LAB NA(LOINC) 136-145 mEq/L High Sodium Level 155 Performed By: #### LAC, NA, TROPI #### [place] [address] TROPI Collected: 09/14/2018 Status: F Source: [facility] 11:05 [facility] REPOSITORY TYPE CODE TESTS RESULT OUT OF REFERENCE UNITS RANGE LAB TROPI(LOINC 0.000-0.040 ng/mL ) High Troponin I 1.390 Result Comment: Troponin I reference ranges (05/03/14): 0.00-0.040 ng/mL Negative and non-diagnostic. >0.040 ng/mL Consistent with cardiac damage, increased clinical risk and possibility of myocardial infarction. Serial measurements, a rise & fall in test results, clinical history, appropriate symptoms and/or ECG changes may help assess possibility of MO. *Other non-acute coronary syndrome conditions such as CHF, myocarditis, pulmonary emboli, sepsis and cardiac surgery could result in myocardial damage and increased troponin levels. Performed By: #### LAC, NA, TROPI #### [facility] [address] [place] [address] LAC Collected: 09/14/2018 Status: F Source: [facility] 7:43 [facility] REPOSITORY TYPE CODE TESTS RESULT OUT OF REFERENCE UNITS RANGE LAB LAC(LOINC) 0.2-2.0 mmol/L High Lactic Acid 4.0 Lvl Performed By: #### LAC, TROPI #### [address] [address] TROPI Collected: 09/14/2018 Status: F Source: [facility] 7:43 [facility] REPOSITORY TYPE CODE TESTS RESULT OUT OF REFERENCE UNITS RANGE LAB TROPI(LOINC 0.000-0.040 ng/mL ) High Troponin I 1.040 Result Comment: Troponin I reference ranges (05/03/14): 0.00-0.040 ng/mL Negative and non-diagnostic. >0.040 ng/mL Consistent with cardiac damage, increased clinical risk and possibility of myocardial infarction. Serial measurements, a rise & fall in test results, clinical history, appropriate symptoms and/or ECG changes may help assess possibility of MO. *Other non-acute coronary syndrome conditions such as CHF, myocarditis, pulmonary emboli, sepsis and cardiac surgery could result in myocardial damage and increased troponin levels. Performed By: #### LAC, TROPI #### [place] [address] CT ABDOMEN/PELVIS W/O Observed: 09/14/2018 Status: F Source: [facility] 6:00 PM [facility] REPOSITORY ORIGINAL CT ABDOMEN/PELVIS W/O CONTRAST, 09/14/2018 6:45 PM INDICATION: abd pain, lactic acidosis COMPARISON: No Technique: CT of the abdomen and pelvis with sagittal and coronal reconstructions. This exam was performed according to our departmental dose optimization program, and includes the following measures where applicable: automated exposure control, adjustment of the mAs and/or kVp accord ing to patient size and/or exam, and an iterative reconstruction algorithm. FINDINGS: There is a cholecystectomy. There is a punctate calcification in the proximal LEFT ureter, no more than a few millimeters in diameter; there is a LEFT hydronephrosis. A RIGHT renal calcificati ons, but no RIGHT ureteral stone. There are several calcifications in the head of the pancreas. The remaining abdominal organs are unremarkable in appearance. There is a Reed catheter. Bowel is poorly evaluated in the absence of oral contrast. The appendix is not identified. There is no free fluid. There are prominent vascular calcifications. IMPRESSION: 1. Punctate proximal LEFT ureteral stone with an obstructive component. 2. Pancreatic calcifications, suggestive of previous pancreatitis. Interpreted By: Rafat Castillo MD Preliminary Report By: Rafat Castillo MD Electronically Signed By: Rafat Castillo MD Dictated Date: 09/14/2018 8:14:03 PM Prelim Date: 09/14/2018 8:14:03 PM Sign Date: 09/14/2018 8:17:06 PM XR CHEST 1 VIEW Observed: 09/14/2018 Status: F Source: [facility] 5:47 PM [facility] REPOSITORY ORIGINAL XR CHEST 1 VIEW SEMIUPRIGHT AT 6:15 PM CLINICAL STATEMENT: sob COMPARISON: None FINDINGS: The cardiomediastinal contours are normal. Multiple median sternotomy wires are present. There is no consolidation, vascular congestion, pleural effusion, or pneumothorax. Osseous structures d emonstrate no acute abnormalities. IMPRESSION: No acute radiographic findings. I have personally reviewed the images of this examination and agree with the resident's findings and interpretation. Interpreted By: Rafat Castillo MD Preliminary Report By: Shelly Cantor MD Electronically Signed By: Rafat Castillo MD Dictated Date: 09/14/2018 6:20:48 PM Prelim Date: 09/14/2018 6:21:29 PM Sign Date: 09/14/2018 6:30:20 PM LAC Collected: 09/14/2018 Status: F Source: [facility] 3:40 PM [facility] REPOSITORY TYPE CODE TESTS RESULT OUT OF REFERENCE UNITS RANGE LAB LAC(LOINC) 0.2-2.0 mmol/L High Lactic Acid 3.5 Lvl Performed By: #### LAC, GFR, BMP #### [place] [address] .GFR Collected: 09/14/2018 Status: F Source: [facility] 3:40 PM [facility] REPOSITORY TYPE CODE TESTS RESULT OUT OF REFERENCE UNITS RANGE LAB GFRAA(LOINC ml/min/1.73 ) sqm GFR 39 [place] Result Comment: GFR Population mean for , Non- Americans Ages 20-29 = 116 mL/min/1.73 sq.m. Ages 30-39 = 107 mL/min/1.73 sq.m. Ages 40-49 = 99 mL/min/1.73 sq.m. Ages 50-59 = 93 mL/min/1.73 sq.m. Ages 60-69 = 85 mL/min/1.73 sq.m. Ages 70+ = 75 mL/min/1.73 sq.m. Chronic Kidney Disease: Less than 60 mL/min/1.73 square meters End Stage Renal Disease: Less than 15 mL/min/1.73 square meters LAB GFRNO(LOINC) ml/min/1.73sqm GFR Non- 32 Result Comment: GFR Population mean for , Non- Americans Ages 20-29 = 116 mL/min/1.73 sq.m. Ages 30-39 = 107 mL/min/1.73 sq.m. Ages 40-49 = 99 mL/min/1.73 sq.m. Ages 50-59 = 93 mL/min/1.73 sq.m. Ages 60-69 = 85 mL/min/1.73 sq.m. Ages 70+ = 75 mL/min/1.73 sq.m. Chronic Kidney Disease: Less than 60 mL/min/1.73 square meters End Stage Renal Disease: Less than 15 mL/min/1.73 square meters Performed By: #### LAC, GFR, BMP #### [place] [address] BMP Collected: 09/14/2018 Status: F Source: [facility] 3:40 PM [facility] RE[facility] TYPE CODE TESTS RESULT OUT OF RANGE REFERENCE UNITS LAB GLU(LOINC) 82-115 mg/dL Glucose Abnormal Level 403 Alert LAB NA(LOINC) 136-145 mEq/L High Sodium Level 154 LAB K(LOINC) 3.5-5.0 mEq/L Potassium Level 3.7 LAB CL(LOINC) 98-110 mEq/L High Chloride 120 LAB CO2(LOINC) 22-32 mEq/L CO2 23 LAB EBAL(LOINC 4.0-15.0 mEq/L ) Electrolyte Balance 11.0 LAB BUN(LOINC) 8.0-22.0 mg/dL High BUN 45.0 LAB CRE(LOINC) 0.60-1.40 mg/dL High Creatinine Lvl (s) 2.08 LAB BC(LOINC) 10.0-22.0 ratio BUN/Creatinine 21.6 Ratio LAB CA(LOINC) 8.4-10.1 mg/dL Calcium Lvl 8.4 Performed By: #### LAC, GFR, BMP #### [place] [address] AMM Collected: 09/14/2018 Status: F Source: [facility] 3:40 PM [facility] REPOSITORY TYPE CODE TESTS RESULT OUT OF REFERENCE UNITS RANGE LAB AMM(LOINC) 25-35 mcmol/l Low Ammonia 24 Performed By: #### AMM #### [place] [address] TROPI Collected: 09/14/2018 Status: F Source: [facility] 3:40 PM [facility] REPOSITORY TYPE CODE TESTS RESULT OUT OF REFERENCE UNITS RANGE LAB TROPI(LOINC 0.000-0.040 ng/mL ) High Troponin I 0.919 Result Comment: Troponin I reference ranges (05/03/14): 0.00-0.040 ng/mL Negative and non-diagnostic. >0.040 ng/mL Consistent with cardiac damage, increased clinical risk and possibility of myocardial infarction. Serial measurements, a rise & fall in test results, clinical history, appropriate symptoms and/or ECG changes may help assess possibility of MO. *Other non-acute coronary syndrome conditions such as CHF, myocarditis, pulmonary emboli, sepsis and cardiac surgery could result in myocardial damage and increased troponin levels. Performed By: #### TROPI #### [place] [address] BG Collected: 09/14/2018 Status: F Source: [facility] 1:37 PM [facility] REPOSITORY TYPE CODE TESTS RESULT OUT OF REFERENCE UNITS RANGE LAB PH(LOINC) 7.380-7.460 Low pH 7.369 LAB PCO2(LOINC 32.0-46.0 mmHg ) pCO2 37.6 LAB PO2(LOINC) 74.0-108.0 mmHg pO2 78.4 LAB HCO3(LOINC 21.0-29.0 mmol/L ) HCO3 21.2 LAB TCO2(LOINC 22.0-30.0 mmol/L ) CO2 Totl 22.4 LAB BE(LOINC) mmol/L Base Excess -3.6 LAB O2SAT(LOIN 92.0-96.0 % C) O2 Sat 95.6 LAB BPRES(LOIN mmHg C) Barometric 730 Pressure Performed By: #### BG #### [place] [address] LAC Collected: 09/14/2018 Status: F Source: [facility] 1:32 PM [facility] REPOSITORY TYPE CODE TESTS RESULT OUT OF REFERENCE UNITS RANGE LAB LAC(LOINC) 0.2-2.0 mmol/L High Lactic Acid 2.4 Lvl Performed By: #### LAC #### [place] [address] LIP Collected: 09/14/2018 Status: F Source: [facility] 1:32 [facility] REPOSITORY TYPE CODE TESTS RESULT OUT OF REFERENCE UNITS RANGE LAB LIP(LOINC) 73-393 U/L Low Lipase Level 35 Performed By: #### LIP #### [place] [address] AMM Collected: 09/14/2018 Status: F Source: [facility] 1:32 PM [facility] REPOSITORY TYPE CODE TESTS RESULT OUT OF REFERENCE UNITS RANGE LAB AMM(LOINC) 25-35 mcmol/l High Ammonia 44 Performed By: #### AMM #### [place] [address] PHV Collected: 09/14/2018 Status: F Source: [facility] 12:40 PM [facility] REPOSITORY TYPE CODE TESTS RESULT OUT OF REFERENCE UNITS RANGE LAB PHV(LOINC) 7.380-7.460 Low pH Venous 7.290 Performed By: #### PHV, TROPI #### [place] [address] TROPI Collected: 09/14/2018 Status: F Source: [facility] 12:40 PM [facility] REPOSITORY TYPE CODE TESTS RESULT OUT OF REFERENCE UNITS RANGE LAB TROPI(LOINC 0.000-0.040 ng/mL ) High Troponin I 0.722 Result Comment: Troponin I reference ranges (05/03/14): 0.00-0.040 ng/mL Negative and non-diagnostic. >0.040 ng/mL Consistent with cardiac damage, increased clinical risk and possibility of myocardial infarction. Serial measurements, a rise & fall in test results, clinical history, appropriate symptoms and/or ECG changes may help assess possibility of MO. *Other non-acute coronary syndrome conditions such as CHF, myocarditis, pulmonary emboli, sepsis and cardiac surgery could result in myocardial damage and increased troponin levels. Performed By: #### PHV, TROPI #### [address] [address] BMP Collected: 09/14/2018 Status: F Source: [facility] 12:40 [facility] REPOSITORY TYPE CODE TESTS RESULT OUT OF REFERENCE UNITS RANGE LAB GLU(LOINC) 82-115 mg/dL Glucose High Level 336 LAB NA(LOINC) 136-145 mEq/L Sodium High Level 156 LAB K(LOINC) 3.5-5.0 mEq/L Potassium Level 3.8 LAB CL(LOINC) 98-110 mEq/L Chloride High 119 LAB CO2(LOINC) 22-32 mEq/L CO2 26 LAB EBAL(LOINC 4.0-15.0 mEq/L ) Electrolyte Balance 11.0 LAB BUN(LOINC) 8.0-22.0 mg/dL BUN High 42.0 LAB CRE(LOINC) 0.60-1.40 mg/dL Creatinine High Lvl (s) 1.96 LAB BC(LOINC) 10.0-22.0 ratio BUN/Creatinine 21.4 Ratio LAB CA(LOINC) 8.4-10.1 mg/dL Calcium Lvl 8.8 Performed By: #### BMP, MG, PHOS, GFR, CBC, ADIFF, ANEU, OSMOS #### [address] [address] MG Collected: 09/14/2018 Status: F Source: [facility] 12:40 [facility] REPOSITORY TYPE CODE TESTS RESULT OUT OF REFERENCE UNITS RANGE LAB MG(LOINC) 1.6-2.4 mg/dL Magnesium Lvl 2.4 Performed By: #### BMP, MG, PHOS, GFR, CBC, ADIFF, ANEU, OSMOS #### [address] [address] PHOS Collected: 09/14/2018 Status: F Source: [facility] 12:40 PM [facility] REPOSITORY TYPE CODE TESTS RESULT OUT OF REFERENCE UNITS RANGE LAB PHOS(LOINC 2.5-4.5 mg/dL ) Phosphorus 4.4 Performed By: #### BMP, MG, PHOS, GFR, CBC, ADIFF, ANEU, OSMOS #### [address] [address] .GFR Collected: 09/14/2018 Status: F Source: [facility] 12:40 PM [facility] REPOSITORY TYPE CODE TESTS RESULT OUT OF REFERENCE UNITS RANGE LAB GFRAA(LOINC ml/min/1.73 ) sqm GFR 42 [place] Result Comment: GFR Population mean for , Non- Americans Ages 20-29 = 116 mL/min/1.73 sq.m. Ages 30-39 = 107 mL/min/1.73 sq.m. Ages 40-49 = 99 mL/min/1.73 sq.m. Ages 50-59 = 93 mL/min/1.73 sq.m. Ages 60-69 = 85 mL/min/1.73 sq.m. Ages 70+ = 75 mL/min/1.73 sq.m. Chronic Kidney Disease: Less than 60 mL/min/1.73 square meters End Stage Renal Disease: Less than 15 mL/min/1.73 square meters LAB GFRNO(LOINC) ml/min/1.73sqm GFR Non- 35 Result Comment: GFR Population mean for , Non- Americans Ages 20-29 = 116 mL/min/1.73 sq.m. Ages 30-39 = 107 mL/min/1.73 sq.m. Ages 40-49 = 99 mL/min/1.73 sq.m. Ages 50-59 = 93 mL/min/1.73 sq.m. Ages 60-69 = 85 mL/min/1.73 sq.m. Ages 70+ = 75 mL/min/1.73 sq.m. Chronic Kidney Disease: Less than 60 mL/min/1.73 square meters End Stage Renal Disease: Less than 15 mL/min/1.73 square meters Performed By: #### BMP, MG, PHOS, GFR, CBC, ADIFF, ANEU, OSMOS #### [address] [address] CBC Collected: 09/14/2018 Status: F Source: [facility] 12:40 PM [facility] REPOSITORY TYPE CODE TESTS RESULT OUT OF REFERENCE UNITS RANGE LAB WBC(LOINC) 4.50-10.80 10 3/mcL High WBC 22.70 LAB RBCCT(LOINC 4.50-6.00 10 6/mcL ) RBC 5.01 LAB HGB(LOINC) 13.0-17.5 G/dL Hgb 15.3 LAB HCT(LOINC) 40.0-52.0 % Hct 46.8 LAB MCV(LOINC) 81.0-100.0 fL MCV 93.5 LAB MCH(LOINC) 27.0-33.0 pg MCH 30.6 LAB MCHC(LOINC) 32.0-36.0 G/dL MCHC 32.8 LAB RDW(LOINC) 11.5-15.5 % RDW 13.9 LAB PLT(LOINC) 150-450 10 3/mcL Platelet 204 LAB MPV(LOINC) 6.4-10.5 fL High MPV 10.6 Performed By: #### BMP, MG, PHOS, GFR, CBC, ADIFF, ANEU, OSMOS #### [place] [address] .AUTO DIFF Collected: 09/14/2018 Status: F Source: [facility] 12:40 [facility] REPOSITORY TYPE CODE TESTS RESULT OUT OF REFERENCE UNITS RANGE LAB JAIME(LOINC) 50.0-75.0 % High Neutrophil % 84.3 LAB LYM(LOINC) 20.0-40.0 % Low Lymphocyte % 8.3 LAB MON(LOINC) 2.0-13.0 % Monocyte % 7.2 LAB EO(LOINC) 0.0-6.0 % Eosinophil % 0.0 LAB BAS(LOINC) 0.0-2.5 % Basophil % 0.2 LAB ABLYM(LOIN 0.90-4.32 10 3/mcL C) Lymphocyte, 1.90 Absolute LAB KEVON(LOINC 0.09-1.40 10 3/mcL ) High Monocyte, 1.60 Absolute LAB AEOS(LOINC 0.00-0.65 10 3/mcL ) Eosinophil, 0.00 Absolute LAB ABAS(LOINC 0.00-0.27 10 3/mcL ) Basophil, 0.00 Absolute Performed By: #### BMP, MG, PHOS, GFR, CBC, ADIFF, ANEU, OSMOS #### [place] [address] .NEUABS Collected: 09/14/2018 Status: F Source: [facility] 12:40 PM [facility] REPOSITORY TYPE CODE TESTS RESULT OUT OF REFERENCE UNITS RANGE LAB ANEU(LOINC) 2.25-8.10 10 3/mcL High Neutrophil, 19.10 Absolute Performed By: #### BMP, MG, PHOS, GFR, CBC, ADIFF, ANEU, OSMOS #### [place] [address] OSMOS Collected: 09/14/2018 Status: F Source: [facility] 12:40 PM [facility] REPOSITORY TYPE CODE TESTS RESULT OUT OF REFERENCE UNITS RANGE LAB OSMOS(LOIN 275-300 mOsm/kg C) High Osmolality (s) 355 Performed By: #### BMP, MG, PHOS, GFR, CBC, ADIFF, ANEU, OSMOS #### [place] [address] Observed: 09/14/2018 Status: P Source: [facility] 12:40 PM [facility] REPOSITORY . MICRO - Microbiology PROCEDURE: Blood Culture (bacterial) [*1] SOURCE: Blood BODY SITE: COLLECTED DATE/TIME: 09/14/2018 12:40 EST RECEIVED DATE/TIME: 09/14/2018 17:46 EST START DATE/TIME: 09/14/2018 17:46 EST FREE TEXT SOURCE: PRELIMINARY REPORTS Preliminary Report [] Verified Date/Time/Personnel: 09/14/2018 18:59 EST Culture has been received in lab and is no growth to date. Routine cultures are held for 5 days. Performing Locations *1: This test was performed at: [address], [facility] Performed By: #### CBL #### [place] [address] Observed: 09/14/2018 Status: P Source: [facility] 12:40 PM [facility] REPOSITORY . MICRO - Microbiology PROCEDURE: Blood Culture (bacterial) [*1] SOURCE: Blood BODY SITE: COLLECTED DATE/TIME: 09/14/2018 12:40 EST RECEIVED DATE/TIME: 09/14/2018 17:46 EST START DATE/TIME: 09/14/2018 17:46 EST FREE TEXT SOURCE: PRELIMINARY REPORTS Preliminary Report [] Verified Date/Time/Personnel: 09/14/2018 18:59 EST Culture has been received in lab and is no growth to date. Routine cultures are held for 5 days. Performing Locations *1: This test was performed at: [facility], [address] [place] [address], [address] [place] [address] Performed By: #### CBL #### [place] [address] LACTATE Collected: 09/14/2018 Status: F [facility] REPOSITORY TYPE CODE TESTS RESULT OUT OF REFERENCE UNITS RANGE LAB LACTATE(ARGENIS 4.5 - 18.0 mg/dL NC) High LACTATE 22.4 Performed By: #### [id number] #### [facility],[address] [place] [id number] LACTATE Collected: 09/14/2018 Status: F Source: [facility] 4:23 [facility] REPOSITORY TYPE CODE TESTS RESULT OUT OF REFERENCE UNITS RANGE LAB LACTATE(ARGENIS 4.5 - 18.0 mg/dL NC) High LACTATE 26.2 Performed By: #### [id number] #### [facility],[address] [place], [place] [id number] BMP WITH EGFR Collected: 09/14/2018 Status: F Source: [facility] 4:23 [facility] REPOSITORY TYPE CODE TESTS RESULT OUT OF RANGE REFERENCE UNITS LAB BMP with eGFR(LOINC) BMP with eGFR Result Comment: BASIC METABOLIC PANEL LAB SODIUM(LOINC) 136 - 145 mmol/l High Alert SODIUM 151 Result Comment: { CALLED TO LAFONZO/SBP/0501 { READ BACK BY ALFONZO/RA/0502 LAB POTASSIUM(LOINC) 3.5 - mmol/L Low 5.1 POTASSIUM 3.3 LAB CHLORIDE(LOINC) 98 - 107 mmol/L High CHLORIDE 112 LAB CO2(LOINC) 21.0 - mmol/L 31.0 CO2 23.3 LAB GLUCOSE(LOINC) 74 - 106 mg/dl High Alert GLUCOSE 627 Result Comment: { CALLED TO ALFONZO/SBP/0501 { READ BACK BY ALFONZO/RA/0502 LAB BUN(LOINC) 6 - 20 mg/dl BUN High 37 LAB CREATININE(LOINC) 0.7 - 1.3 mg/dl CREATININE High 1.9 LAB CALCIUM(LOINC) 8.6 - 10.2 mg/dl CALCIUM High 10.9 LAB ANION GAP(LOINC) 10 - 20 mmol/L ANION GAP 19 LAB AGE(LOINC) years AGE 62 LAB eGFR(LOINC) 60 - 999 ML/MINUTE Low eGFR 36 LAB eGFR(AA)(LOINC) 60 - 999 ML/MINUTE Low eGFR(AA) 43 Result Comment: ACCORDING TO THE NATIONAL KIDNEY DISEASE EDUCATION PROGRAM(NKDE), A NORMAL eGFR IS A VALUE GREATER THAN OR EQUAL TO 60 ML/MIN/1.73 SQ METERS. CHRONIC KIDNEY DISEASE: <60mL/MIN/1.73 SQ METERS KIDNEY FAILURE: <15mL/MIN/1.73 SQ METERS THIS TEST SHOULD ONLY BE USED FOR PATIENTS 18 YEARS OF AGE AND OLDER. Performed By: #### [id number] #### [place] [address] VALPROIC ACID Collected: 09/14/2018 Status: F Source: [facility] 4:23 AM [facility] REPOSITORY TYPE CODE TESTS RESULT OUT OF REFERENCE UNITS RANGE LAB VALPROIC 50 - 120 ug/ml ACID(LOINC) Low VALPROIC ACID 12 Performed By: #### [id number] #### [place] [address] ARTERIAL BLOOD GAS Collected: 09/14/2018 Status: F Source: [facility] 3:55 AM [facility] REPOSITORY TYPE CODE TESTS RESULT OUT OF REFERENCE UNITS RANGE LAB ARTERIAL BLOOD GAS ANALYSIS(LOINC ) ARTERIAL BLOOD GAS ANALYSIS Result Comment: ARTERIAL BLOOD GAS LAB pH(LOINC) 7.35 - 7.45 7.42 pH LAB PCO2(LOINC) 35 - 45 mm Hg 36 PCO2 LAB PO2(LOINC) 80 - 105 mm Hg Low Alert 33 PO2 Result Comment: { CALLED TO DR BORREGO [id number] { READ BACK BY DR BORREGO 0356 [id number] LAB HCO3(LOINC) 22 - 26 mmol/L HCO3 23 LAB BE(LOINC) -2 - 3 BE -1 LAB SaO2(LOINC) 95 - 98 Low Alert SaO2 66 Result Comment: { CALLED TO DR BORREGO 0356 [id number] { READ BACK BY DR BORREGO 0356 16431 TIME RESULT CALLED _355 09/14/18.0356.MAR. { FIO2/LPM RA 21% LAB MODALITY(LOINC) MODALITY RA LAB SPO2(LOINC) SPO2 93 LAB TOTAL RR(LOINC) TOTAL RR 16 LAB PULSE(LOINC) PULSE 86 LAB SAMPLE SITE(LOINC) SAMPLE SITE LRADIAL LAB VENT(LOINC) VENT N/A LAB ALLENS TEST(INC) ALLENS + TEST Result Comment: { TIME CALLED 355 Performed By: #### [id number] #### [facility],[address] [place] [address] BMP WITH EGFR Collected: 09/14/2018 Status: F Source: [facility] 2:48 AM [facility] REPOSITORY TYPE CODE TESTS RESULT OUT OF RANGE REFERENCE UNITS LAB BMP with eGFR(LOINC) BMP with eGFR Result Comment: BASIC METABOLIC PANEL LAB SODIUM(LOINC) 136 - 145 mmol/l High SODIUM 149 LAB POTASSIUM(LOINC) 3.5 - 5.1 mmol/L POTASSIUM 3.5 LAB CHLORIDE(LOINC) 98 - 107 mmol/L High CHLORIDE 109 LAB CO2(LOINC) 21.0 - mmol/L 31.0 CO2 21.6 LAB GLUCOSE(LOINC) 74 - 106 mg/dl High Alert GLUCOSE >800 Result Comment: { CALLED TO ALFOZNO/SBP/0319 { READ BACK BY ALFONZO//0320 LAB BUN(LOINC) 6 - 20 mg/dl BUN High 38 LAB CREATININE(LOINC) 0.7 - 1.3 mg/dl CREATININE High 1.9 LAB CALCIUM(LOINC) 8.6 - 10.2 mg/dl CALCIUM High 10.6 LAB ANION GAP(LOINC) 10 - 20 mmol/L ANION GAP High 22 LAB AGE(LOINC) years AGE 62 LAB eGFR(LOINC) 60 - 999 ML/MINUTE Low eGFR 36 LAB eGFR(AA)(LOINC) 60 - 999 ML/MINUTE Low eGFR(AA) 43 Result Comment: ACCORDING TO THE NATIONAL KIDNEY DISEASE EDUCATION PROGRAM(NKDE), A NORMAL eGFR IS A VALUE GREATER THAN OR EQUAL TO 60 ML/MIN/1.73 SQ METERS. CHRONIC KIDNEY DISEASE: <60mL/MIN/1.73 SQ METERS KIDNEY FAILURE: <15mL/MIN/1.73 SQ METERS THIS TEST SHOULD ONLY BE USED FOR PATIENTS 18 YEARS OF AGE AND OLDER. Performed By: #### [id number] #### [facility],[address] [place] [address] BMP WITH EGFR Collected: 09/14/2018 Status: F Source: [facility] 1:22 AM [facility] REPOSITORY TYPE CODE TESTS RESULT OUT OF RANGE REFERENCE UNITS LAB BMP with eGFR(LOINC) BMP with eGFR Result Comment: BASIC METABOLIC PANEL LAB SODIUM(LOINC) 136 - 145 mmol/l SODIUM 145 LAB POTASSIUM(LOINC) 3.5 - 5.1 mmol/L POTASSIUM 3.8 LAB CHLORIDE(LOINC) 98 - 107 mmol/L CHLORIDE 104 LAB CO2(LOINC) 21.0 - mmol/L 31.0 CO2 22.3 LAB GLUCOSE(LOINC) 74 - 106 mg/dl High Alert GLUCOSE >800 Result Comment: { CALLED TO ALFONZO/SBP/0218 { READ BACK BY ALFONZO/RA/0219 LAB BUN(LOINC) 6 - 20 mg/dl BUN High 37 LAB CREATININE(LOINC) 0.7 - 1.3 mg/dl CREATININE High 1.9 LAB CALCIUM(LOINC) 8.6 - 10.2 mg/dl CALCIUM High 10.3 LAB ANION GAP(LOINC) 10 - 20 mmol/L ANION GAP High 23 LAB AGE(LOINC) years AGE 62 LAB eGFR(LOINC) 60 - 999 ML/MINUTE Low eGFR 36 LAB eGFR(AA)(LOINC) 60 - 999 ML/MINUTE Low eGFR(AA) 43 Result Comment: ACCORDING TO THE NATIONAL KIDNEY DISEASE EDUCATION PROGRAM(NKDE), A NORMAL eGFR IS A VALUE GREATER THAN OR EQUAL TO 60 ML/MIN/1.73 SQ METERS. CHRONIC KIDNEY DISEASE: <60mL/MIN/1.73 SQ METERS KIDNEY FAILURE: <15mL/MIN/1.73 SQ METERS THIS TEST SHOULD ONLY BE USED FOR PATIENTS 18 YEARS OF AGE AND OLDER. Performed By: #### [id number] #### [facility],[address] [place] [address] TROPONIN Collected: 09/14/2018 Status: F Source: [facility] 1:21 AM [facility] REPOSITORY TYPE CODE TESTS RESULT OUT OF REFERENCE UNITS RANGE LAB TROPONIN 0.00 - 0.05 ng/ml I(LOINC) High Alert TROPONIN I 0.08 Result Comment: { CALLED TO DIXON/SBP/140 { READ BACK BY DIXON/RA/0142 Elevated troponin (above the 99th percentile) usually indicates myocardial ischemia. Results must be interpreted within the clinical setting. 1.Non-ischemic pathology can also cause elevated troponin levels (e.g., acute pulmonary embolism, myocarditis, pericarditis, heart failure, intracranial injury, rhabdomyolisis, sepsis, shock and renal insufficiency). 2.Approximately 1% of healthy adults have elevated troponin levels. 3.Analytical false positive results rarely occur(due to multiple interferences such as heterophile antibodies). Performed By: #### [id number] #### [place] [address] LACTATE Collected: 09/14/2018 Status: F [facility] AM [facility] REPOSITORY TYPE CODE TESTS RESULT OUT OF REFERENCE UNITS RANGE LAB LACTATE(ARGENIS 4.5 - 18.0 mg/dL NC) High LACTATE 18.7 Performed By: #### [id number] #### [facility],[address] [place] [address] URINALYSIS Collected: 09/13/2018 Status: F Source: [facility] 10:45 PM [facility] REPOSITORY TYPE CODE TESTS RESULT OUT OF REFERENCE UNITS RANGE LAB URINALYSIS (LOINC) URINALYSIS Result Comment: URINALYSIS LAB Specimen Type(LOINC) Specimen Type Void LAB Color(LOINC) NORMAL: YELLOW Color p.yel LAB Clarity(LOINC) NORMAL: CLEAR Clarity clear LAB ph(LOINC) NORMAL: 5.0-8.0 ph 5 LAB Protein(LOINC) NORMAL: NEGATIVE Protein NEG LAB Glucose(LOINC) NORMAL: NORMAL Glucose Abnormal 1000 LAB Ketone(LOINC) NORMAL: NEGATIVE Ketone Abnormal 15 LAB Bilirubin(LOINC) NORMAL: NEGATIVE Bilirubin NEG LAB Blood(LOINC) NORMAL: NEGATIVE Blood Abnormal 250 LAB Urobilinog(LOINC) NORMAL: NORMAL Urobilinog NORM LAB Sp [place](LOINC) NORMAL: 1.010-1.030 Sp [place] 1.010 LAB Nitrite(LOINC) NORMAL: NEGATIVE Nitrite NEG LAB Leukocytes(LOINC) NORMAL: NEGATIVE Leukocytes NEG LAB Microscopic(LOINC ) Microscopic SEE BELOW Result Comment: MICROSCOPIC LAB Wbc(LOINC) 0-5/hpf Wbc NONE LAB Rbc(LOINC) 0-3/hpf Rbc 15-20 LAB Casts(LOINC) Casts NONE LAB Crystals(LOINC) Crystals NONE LAB Amorphous(LOINC) Amorphous NONE LAB Bacteria(LOINC) Bacteria 1+ LAB Epi Cells(LOINC) Epi Cells NONE LAB Mucous(LOINC) Mucous NONE LAB Yeast(LOINC) Yeast NONE Performed By: #### [id number] #### [facility],[address] [place] [address] DRUG SCREEN URINE Collected: 09/13/2018 Status: F Source: [facility] 10:45 PM [facility] REPOSITORY TYPE CODE TESTS RESULT OUT OF REFERENCE UNITS RANGE LAB DRUG SCREEN URINE MEDIC(LOINC) DRUG SCREEN URINE MEDIC Result Comment: DRUG SCREEN - URINE LAB PCP(LOINC) PCP NEG LAB COCAINE(LOINC) COCAINE NEG LAB OPIATES(LOINC) OPIATES NEG LAB AMPHETAMINES(LOINC ) AMPHETAMINES NEG LAB B-DIAZEPINES(LOINC ) B-DIAZEPINES NEG LAB TCA(LOINC) TCA NEG LAB METHADONE(LOINC) METHADONE NEG LAB BARBITURATES(LOINC ) BARBITURATES NEG LAB THC(LOINC) THC NEG Result Comment: PATIENTS RECEIVING PROTON PUMP INHIBITORS MAY DEMONSTRATE FALSE POSITIVE THC/CANNABINOID RESULTS. AN ALTERNATIVE CONFIRMATORY METHOD SHOULD BE CONSIDERED TO VERIFY POSITIVE RESULTS. Performed By: #### [id number] #### [facility],[address] [place] [address] CHEST 1 VIEW Observed: 09/13/2018 Status: F Source: [facility] 10:03 PM [facility] REPOSITORY [place] [address] Patient: RICKY AMBROCIO Phone#: : [phone] Age: 62 Gender: M Pt. Type: ER Account: [id number] Location: [facility] Ordering: PREM BORREGO Exam Date: 09/13/2018/21:22 Family Phys: HOLDEN HERRERA Charge Code: [id number] Physician: [place] Order #: [id number] DLP Dose#: PROCEDURE: X-RAY CHEST 1 VIEW COMPARISON: [facility], XR, CHEST PA/LAT, 08/24/2016, 12:32. INDICATIONS: Cough FINDINGS: LUNGS: Mild chronic interstitial changes are present. There is mild hyperinflation of lungs. VASCULATURE: Normal. Unremarkable pulmonary vasculature. CARDIAC: Mild cardiomegaly. MEDIASTINUM: Normal. No visible mass or adenopathy. PLEURA: Normal. No effusion or pleural thickening. BONES: Normal. No fracture or visible bony lesion. OTHER: Sternotomy sutures are present. CONCLUSION: Mild COPD. Mild cardiomegaly. Dictated by: Meredith Wade MD on 09/14/2018 at 14:54 Approved by: Meredith Wade MD on 09/14/2018 at 14:54 CT BRAIN W/O CONTRAST Observed: 09/13/2018 Status: F Source: [facility] 9:49 PM [place] [address] Patient: RICKY AMBROCIO Phone#: : [phone] Age: 62 Gender: M Pt. Type: ER Account: [id number] Location: 05 Ordering: PREM BORREGO Exam Date: 09/13/2018/21:41 Family Phys: HOLDEN HERRERA Charge Code: [id number] Physician: [place] Order #: [id number] DLP Dose#: PROCEDURE: CT BRAIN WITHOUT CONTRAST COMPARISON: None. INDICATIONS: Altered mental status TECHNIQUE: CT images were obtained without contrast material. All CT scans at this facility use dose modulation, iterative reconstruction, and/or weight based dosing when appropriate to reduce radiation dose to as low as reasonably achievable. IV CONTRAST: No IV contrast used,ml TOTAL DOSE: 104.6 CTDIvol(mGy) FINDINGS: CEREBRUM: Age-appropriate atrophy is present, without visible acute hemorrhage or lesion. CEREBELLUM: No edema, hemorrhage, mass, acute infarction, or inappropriate atrophy. BRAINSTEM: No edema, hemorrhage, mass, acute infarction, or inappropriate atrophy. CSF SPACES: Ventricles, cisterns, and sulci are appropriate for age. No hydrocephalus, subarachnoid hemorrhage, or mass. SKULL: No mass or other significant visible lesion. SINUSES: Because of thickening is present in the ethmoid sinuses. ORBITS: Limited views are unremarkable. OTHER: Negative. CONCLUSION: 1. There is no evidence of acute intracranial abnormality. Dictated by: Meredith Wade MD on 09/14/2018 at 15:31 Continued Report - Page 2 of 2 Patient: RICKY AMBROCIO Phone#: : [phone] Age: 62 Gender: M Pt. Type: ER Account: [id number] Location: 052 Ordering: PREM BORREGO Exam Date: 09/13/2018/21:41 Family Phys: HOLDEN HERRERA Charge Code: [id number] Physician: [place] Order #: [id number] DLP Dose#: Approved by: Meredith Wade MD on 09/14/2018 at 15:31 CBC Collected: 09/13/2018 Status: F Source: [facility] 9:30 PM [facility] REPOSITORY TYPE CODE TESTS RESULT OUT OF RANGE REFERENCE UNITS LAB CBC(LOINC) CBC Result Comment: CBC-COMPLETE BLOOD COUNT LAB WBC(LOINC) 4.5 - 10.8 x 10EE3/UL WBC High 11.7 LAB RBC(LOINC) 4.50 - x 10EE6/UL 6.00 RBC 4.88 LAB HEMOGLOBIN(LOINC 13.0 - g/dl ) 17.5 HEMOGLOBIN 15.5 LAB HEMATOCRIT(LOINC 40.0 - % ) 52.0 HEMATOCRIT 48.4 LAB MCV(LOINC) 81 - 98 fl MCV High 99 LAB MCH(LOINC) 27 - 33 pg MCH 32 LAB MCHC(LOINC) 32 - 36 X10 3 MCHC 32 LAB RDW/CV(LOINC) 12.0 - % 15.6 RDW/CV 13.9 LAB PLATELET(LOINC) 150 - 450 x10EE3/UL PLATELET 204 LAB MPV(LOINC) 6.4 - 10.5 fl MPV High 11.3 Result Comment: AUTOMATED DIFFERENTIAL LAB NEUT %(LOINC) 46.0 - 76.0 % NEUT % High 86.4 LAB LYMPH %(LOINC) 20.0 - 45.0 % Low LYMPH % 8.3 LAB MONOS %(LOINC) 0.0 - 10.0 % MONOS % 4.8 LAB EO %(LOINC) 0.0 - 7.0 % EO % 0.1 LAB BASO %(LOINC) 0.0 - 2.0 % BASO % 0.4 LAB Lymph #(LOINC) 0.80 - 2.80 x10EE3/U L Lymph # 1.00 LAB Neut #(LOINC) 1.50 - 7.10 x10EE3/U L Neut # High 10.10 LAB [place] #(LOINC) 0.20 - 1.00 x10EE3/U L [place] # 0.60 LAB EO #(LOINC) 0.00 - 0.50 x10EE3/U L EO # 0.00 LAB Baso #(LOINC) 0.00 - 0.10 x10EE3/U L Baso # 0.10 LAB MANUAL DIFF(LOINC) MANUAL DIFF N/A LAB MORPHOLOGY(INC ) MORPHOLOGY N/A Result Comment: {CD] Performed By: #### [id number] #### [facility],[address] [place] [address] CMP WITH EGFR Collected: 09/13/2018 Status: F Source: [facility] 9:30 PM [facility] REPOSITORY TYPE CODE TESTS RESULT OUT OF RANGE REFERENCE UNITS LAB CMP with eGFR(INC) CMP with eGFR Result Comment: COMPREHENSIVE METABOLIC PANEL LAB SODIUM(LOINC) 136 - 145 mmol/l SODIUM 137 LAB POTASSIUM(LOINC) 3.5 - 5.1 mmol/L POTASSIUM 3.7 LAB CHLORIDE(LOINC) 98 - 107 mmol/L CHLORIDE Low 94 LAB CO2(LOINC) 21.0 - mmol/L 31.0 CO2 Low 19.6 LAB BUN(LOINC) 6 - 20 mg/dl BUN High 38 LAB CREATININE(LOINC) 0.7 - 1.3 mg/dl High CREATININE 2.0 LAB AST/SGOT(LOINC) 13 - 39 U/L AST/SGOT 17 LAB ALK PHOS(LOINC) 38 - 126 U/L ALK PHOS High 130 LAB CALCIUM(LOINC) 8.6 - mg/dl 10.2 CALCIUM High 10.5 LAB TOTAL 6.4 - 8.3 g/dl PROTEIN(LOINC) TOTAL PROTEIN 8.0 LAB ALBUMIN(LOINC) 3.4 - 4.8 g/dL ALBUMIN 4.6 LAB GLOBULIN(LOINC) 1.5 - 3.8 G/DL GLOBULIN 3.4 LAB A/G RATIO(LOINC) 0.9 - 1.6 A/G RATIO 1.4 LAB TOTAL BILI(LOINC) 0.0 - 1.5 mg/dl TOTAL BILI 0.5 LAB B/C RATIO(LOINC) 0 - 30 ratio B/C RATIO 19 LAB ALT/SGPT(LOINC) 10 - 40 U/L ALT/SGPT 19 LAB ANION GAP(LOINC) 10 - 20 mmol/L ANION High GAP 27 LAB AGE(LOINC) years AGE 62 LAB eGFR(LOINC) 60 - 999 ML/MINUTE eGFR Low 34 LAB eGFR(AA)(LOINC) 60 - 999 ML/MINUTE eGFR(AA) Low 41 Result Comment: ACCORDING TO THE NATIONAL KIDNEY DISEASE EDUCATION PROGRAM(NKDE), A NORMAL eGFR IS A VALUE GREATER THAN OR EQUAL TO 60 ML/MIN/1.73 SQ METERS. CHRONIC KIDNEY DISEASE: <60mL/MIN/1.73 SQ METERS KIDNEY FAILURE: <15mL/MIN/1.73 SQ METERS THIS TEST SHOULD ONLY BE USED FOR PATIENTS 18 YEARS OF AGE AND OLDER. LAB GLUCOSE(LOINC) 74 - 106 mg/dl High Alert GLUCOSE >800 Result Comment: { CALLED TO ALFONZO/SBP/1114 { READ BACK BY ALFONZO/RA/1115 Performed By: #### [id number] #### [place] [address] ALCOHOL-BLOOD MEDICAL Collected: 09/13/2018 Status: F Source: [facility] 9:30 PM [facility] REPOSITORY TYPE CODE TESTS RESULT OUT OF REFERENCE UNITS RANGE LAB ALCOHOL(ARGENIS 0 - 50 mg/dl NC) ALCOHOL <8 Performed By: #### [id number] #### [place] [address] TROPONIN Collected: 09/13/2018 Status: F Source: [facility] 9:30 PM [facility] REPOSITORY TYPE CODE TESTS RESULT OUT OF REFERENCE UNITS RANGE LAB TROPONIN 0.00 - 0.05 ng/ml I(LOINC) High Alert TROPONIN I 0.07 Result Comment: { CALLED TO BERNA/SBP/1009 { READ BACK BY BERNA/RA/1010 Elevated troponin (above the 99th percentile) usually indicates myocardial ischemia. Results must be interpreted within the clinical setting. 1.Non-ischemic pathology can also cause elevated troponin levels (e.g., acute pulmonary embolism, myocarditis, pericarditis, heart failure, intracranial injury, rhabdomyolisis, sepsis, shock and renal insufficiency). 2.Approximately 1% of healthy adults have elevated troponin levels. 3.Analytical false positive results rarely occur(due to multiple interferences such as heterophile antibodies). Performed By: #### [id number] #### [place] [address] LACTATE Collected: 09/13/2018 Status: F Source: [facility] 9:30 PM [facility] TYPE CODE TESTS RESULT OUT OF REFERENCE UNITS RANGE LAB LACTATE(ARGENIS 4.5 - 18.0 mg/dL RI) High LACTATE 24.3 Performed By: #### [id number] #### [place] [address] EMERGENCY REPORT Observed: 09/13/2018 Status: F Source: [facility] 8:18 PM [facility] EMERGENCY ROOM REPORT NAME ACCOUNT SEX AGE ADMIT DISCHARGE PT MED. RECORD# NUMBER DATE DATE TYPE PORTER [id number] M 62 09/13/18 3 RICKY Troy [id number] ROOM: ER DATE OF : 1955 DICTATING PHYSICIAN: Prem Borrego TIME SEEN: 2024 hours. CHIEF COMPLAINT/HISTORY OF PRESENT ILLNESS: This is a 62-year-old white male who was found to be confused and naked in his house at home. EMS arrived and when they checked his blood sugar it registered greater than 500. The patient is a diabetic. PAST MEDICAL HISTORY: The patient has a past medical history of diabetes mellitus type II insulin requiring with a previous history of diabetic ketoacidosis and hyperosmolar syndromes; coronary artery disease status post coronary artery bypass graft and non-ST segment myocardial infarction in August of 2015, hypertension; COPD; previous history for CVA with no residual neurologic deficit; chronic pain syndrome, mainly back pain; constipation; depression; benign prostatic hypertrophy; peripheral neuropathy; hypercholesterolemia; noncompliance with medications. PAST SURGICAL HISTORY: Includes appendectomy and cholecystectomy; coronary artery bypass graft; hemorrhoid surgery. ALLERGIES: No known drug allergies. FAMILY HISTORY: Includes a father who had an aneurysm and Alzheimer's disease. Mother at age 60 from complications from abdominal surgery. No family history of diabetes. SOCIAL HISTORY: The patient has 3 children. He smokes 1 to 1-1/2 packs of cigarettes per day. Rarely drinks alcohol. REVIEW OF SYSTEMS: Denies any chest pain, shortness of breath, cough, sputum, wheezing, abdominal pain, nausea, vomiting, diarrhea, constipation, melena, hematochezia, headache, numbness, unsteady gait. Does admit to some mild diffuse, generalized weakness. Denies any neck or back pain, joint pain, skin rash or swelling, hives, hay fever or swollen glands. Further review of systems is negative. PHYSICAL EXAMINATION: Vital Signs: Blood pressure 153/105. Patient is awake, alert, somewhat combative and uncooperative, yelling out at staff. He is ambulatory. HEENT: Head appears atraumatic. Pupils are equal and reactive to light. Red reflex Page 1 of 2 [facility], Emergency Room Report RICKY R is intact bilaterally. No conjunctival injection. Nose exhibits no rhinorrhea or epistaxis. Mouth: Mucous membranes are noted to be very dry. Teeth are intact. No pharyngeal erythema. Neck is supple with trachea midline. No JVD or lymphadenopathy. No posterior cervical tenderness. No nuchal rigidity. Lungs demonstrate diminished breath sounds in all lung davis, but I note no accessory muscle use. Presently no wheezing. CVS: Heart rate and rhythm regular with distant heart sounds. No murmur noted. Abdomen is soft and nontender with mildly hyperactive bowel sounds x4 quadrants. No guarding or rigidity. No rebound. No palpable abdominal mass. No hepatosplenomegaly. No distension. Back exhibits no midline or paraspinal region tenderness. No increased paraspinal muscle rigidity. Negative Jerrod's sign. Extremities: No edema or cyanosis. Peripheral pulses are intact. The patient does move all 4 extremities strong and symmetric and he was ambulatory about the room. Neurologic exam shows the patient to be alert, combative, oriented to name but disoriented to time and place. He is uncooperative with exam. Skin is pale but warm and dry. No diaphoresis or rash. DIAGNOSTIC DATA: EKG was done at 2042 hours. It showed a sinus rhythm with a 1st-degree AV block, right bundle branch block. Septal infarct age undetermined. Lateral infarct age undetermined. Inferior infarct age undetermined. [place] was approximately minus 30 degrees. EMERGENCY DEPARTMENT COURSE AND TREATMENT: Presently, I do have blood work pending, and we will do a CT brain due to his altered mental status. I will get a chest x-ray due to his history of COPD. I did order a serum ketone. Will then reevaluate. DIAGNOSIS: Dictated By: Prem Borrego DO 09/13/18 21:41 JOB #: [id number] Transcribed By: [email or web address] 09/13/18 21:49 Electronically signed by: E-Sign: Dr. Prem Borrego D.O. 09/15/18 20:59 Page 2 of 2 [facility], Emergency Room Report RICKY Troy EMERGENCY REPORT Observed: 09/13/2018 Status: F Source: [facility] 8:18 PM [facility] EMERGENCY ROOM REPORT NAME ACCOUNT SEX AGE ADMIT DISCHARGE PT MED. RECORD# NUMBER DATE DATE TYPE PORTER [id number] M 62 09/13/18 3 RICKY Troy [id number] ROOM: ER DATE OF : 1955 DICTATING PHYSICIAN: Prem Borrego ADDENDUM DIAGNOSTIC DATA: White count was 11.7, hemoglobin 15.5, hematocrit 48.4, platelet count 204,000. Lactate was elevated at 24.3, troponin I was 0.07. Serum ketones were moderately elevated. Sodium 137, potassium 3.7, chloride 94, CO2 19.6. BUN 38, creatinine 2. Glucose was greater than 800. AST is 17. ALT 19. Alk phos 130. Total bilirubin 0.5. Urinalysis shows a specific gravity of 1.010. Negative nitrate. Negative leukocyte esterase. There were no white cells and only 1+ bacteria with 15 to 20 red cells per high power field, which I think is probably from the specimen sample. His blood alcohol was less than 8, which was negative. His drug screen was positive for nothing. Urine drug abuse was negative. EMERGENCY DEPARTMENT COURSE AND TREATMENT: Chest x-ray showed COPD but no acute infiltrate or failure. I did give the patient IV fluids here. He is on his second liter right now. Start him on insulin drip at 5 units an hour. I did discuss the case with Dr. Leon. He felt with the elevated anion gap, the patient should go to [place], so I do have a page in to the transfer line at [facility] and I do anticipate transfer and admission to their ICU. Please see the written document for final patient disposition. DIAGNOSIS: Diabetic ketoacidosis. Dictated By: Prem Borrego DO 09/13/18 23:31 JOB #: [id number] Transcribed By: [email or web address] 09/14/18 06:51 Electronically signed by: E-Sign: Dr. Prem Borrego D.O. 09/15/18 20:59 Page 1 of 1 [facility], Emergency Room Report RICKY Troy EMERGENCY REPORT Observed: 09/13/2018 Status: F Source: [facility] 8:18 PM [facility] EMERGENCY ROOM REPORT NAME ACCOUNT SEX AGE ADMIT DISCHARGE PT MED. RECORD# NUMBER DATE DATE TYPE PORTER [id number] M 62 09/13/18 3 RICKY Troy [id number] ROOM: ER DATE OF : 1955 DICTATING PHYSICIAN: Prem Borrego ADDENDUM EMERGENCY DEPARTMENT COURSE AND TREATMENT: I did discuss the case with Dr. Sparks, the sonoscope operator at [facility]. He has accepted Mr. Ambrocio for admission to the ICU at [facility]. Dictated By: Prem Borrego DO 09/13/18 23:59 JOB #: [id number] Transcribed By: arcenio 09/14/18 07:22 Electronically signed by: E-Sign: Dr. Prem Borrego D.O. 09/15/18 20:59 Page 1 of 1 [facility], Emergency Room Report RICKY Troy CBC W/DIFF, AUTOMATED Collected: 08/04/2018 Status: F Source: [facility] 4:56 PM [facility] REPOSITORY TYPE CODE TESTS RESULT OUT OF RANGE REFERENCE UNITS LAB L100.1000 4.4-11.0 K/mm3 Normal WBC 6.7 LAB L100.1200 4.6-6.2 M/mm3 Low RBC 4.26 LAB L100.1300 13.0-16.5 g/dl Normal HGB 13.4 LAB L100.1400 40-54 % Low HCT 39.8 LAB L100.1500 80-94 fL Normal MCV 93.4 LAB L100.1600 27.0-32.0 pg Normal MCH 31.5 LAB L100.1700 32-36 g/gl Normal MCHC 33.7 LAB L100.1810 11.6-14.6 % Normal RDW CV 13.3 LAB L100.1820 35.1-43.9 fl Normal RDW SD 43.8 LAB L100.1900 150-450 K/mm3 Normal PLT 163 LAB L100.2000 6.2-12.0 fl High MPV 12.4 LAB L100.2100 47-70 % Normal NEUT% 51.9 LAB L100.2200 19-41 % Normal LY% 36.1 LAB L100.2300 0-10 % Normal MONO% 8.0 LAB L100.2400 0-5 % Normal EO% 2.8 LAB L100.2500 0-1 % Normal BASO% 0.9 LAB L100.2550 0.0-0.9 % Normal IM GRAN % 0.300 Result Comment: IG% - Immature Granulocytes (promyelocytes, myelocytes and metamyelocytes) > 1% indicates that a LEFT SHIFT is Present. LAB L100.2620 2.0-7.7 X10 3/uL Normal Absolute Neut 3.5 LAB L100.2720 0.83-4.51 X10 3/ul Normal Absolute Lymph 2.43 Performed By: #### L100.0100, L101.9900 #### [facility] [address] [facility] [id number] ERYTHROCYTE SED RATE Collected: 08/04/2018 Status: F Source: [place] 4:56 PM [facility] REPOSITORY TYPE CODE TESTS RESULT OUT OF RANGE REFERENCE UNITS LAB L102.0000 0-20 mm/hr Normal SED RATE 17 Performed By: #### L100.0100, L101.9900 #### [facility] [address] [place], [place], [id number] COMPREHENSIVE METABOLIC Collected: 08/04/2018 Status: F Source: [facility] 4:56 PM [facility] REPOSITORY TYPE CODE TESTS RESULT OUT OF RANGE REFERENCE UNITS LAB L501.0100 74-106 mg/dL High GLU 241 Result Comment: Glucose result greater than or equal to 200 mg/dL suggests DIABETES MELLITUS per A.D.A. criteria. Please note revised GLUCOSE reference range effective 2017. LAB L501.1000 7-18 mg/dL High BUN 23 LAB L501.1100 0.70-1.30 mg/dL Normal CREAT,SERUM 1.28 Result Comment: The validity of the calculated GFR AND GFRAA in patients over 70 years has not been determined. Clinical correlation is essential. LAB L501.1110 >60 mL/min Normal EST GFR 60 Result Comment: Non- GFR Calc LAB L501.1115 >60 mL/min Normal EST GFR - AA 73 Result Comment: GFR Calc LAB L501.1300 10-20 RATIO Normal BUN/CRE 18.0 LAB L501.1500 6.4-8.2 g/dL T Normal PROT 6.9 LAB L501.1800 3.2-5.0 g/dL Normal ALB 3.3 LAB L501.1950 2.2-4.2 g/dL Normal GLOB 3.6 LAB L501.2000 0.9-2.4 RATIO Normal A/G 0.9 LAB L501.2200 8.5-10.1 mg/dL CA Normal 8.9 LAB L501.4100 15-37 U/L High AST 40 LAB L501.4305 45-117 U/L High ALK P 159 LAB L501.4405 16-61 U/L Normal ALT 46 LAB L501.4600 0.20-1.00 mg/dL T Normal BILI 0.20 LAB L501.5300 136-145 mmol/L NA Normal 142 LAB L501.5600 3.5-5.1 mmol/L K Normal 4.0 LAB L501.5900 98-107 mmol/L CL Normal 106 LAB L501.6100 21.0-32.0 mmol/L Normal CO2 28.0 LAB L501.6200 5-15 Normal GAP 8 Performed By: #### L500.4050, L500.4100, L501.3620, L501.9520 #### [facility] [address] [place], [address] LIPID PROFILE Collected: 08/04/2018 Status: F Source: [facility] 4:56 PM [facility] REPOSITORY TYPE CODE TESTS RESULT OUT OF RANGE REFERENCE UNITS LAB L501.4900 200 mg/dL Normal CHOL 123 Result Comment: <200 mg/dL Desirable 200-240 mg/dL Borderline >240 mg/dL High Risk LAB L501.5000 mg/dL High TRIG 326 Result Comment: The drugs N-Acetylcysteine and Metamizole may falsely depress this assay. Serum Triglycerides Reference Interval Normal <150 mg/dL Borderline high 150 - 199 mg/dL High 200 - 499 mg/dL Very High > or = 500 mg/dL LAB L501.6400 mg/dL Low HDL 24 Result Comment: The drugs N-Acetylcysteine and Metamizole may falsely depress this assay. Reference Range HDL <40 mg/dL Low HDL Cholesterol HDL >or= 60 mg/dL High HDL Cholesterol LAB L501.6500 0-130 mg/dL Normal LDL 34 LAB L501.6600 5-40 mg/dL High VLDL 65 Performed By: #### L500.4050, L500.4100, L501.3620, L501.9520 #### [facility] [address] [place], [place], [id number] CPK TOTAL, CREATINE Collected: 08/04/2018 Status: F Source: [facility] [place] 4:56 PM [facility] REPOSITORY TYPE CODE TESTS RESULT OUT OF RANGE REFERENCE UNITS LAB L501.3620 39-308 U/L Normal CPK TOTAL 84 Performed By: #### L500.4050, L500.4100, L501.3620, L501.9520 #### [facility] [address] [place], [address] THYROID STIM HORMONE Collected: 08/04/2018 Status: F Source: [facility] ([facility]) 4:56 PM [facility] REPOSITORY TYPE CODE TESTS RESULT OUT OF RANGE REFERENCE UNITS LAB L501.9520 0.358-3.74 uIU/mL Normal TSH 1.86 Performed By: #### L500.4050, L500.4100, L501.3620, L501.9520 #### [facility] [address] [place], [address] ALLERGIES ALLERGIES DATE TYPE / CODE NAME / CODE REACTION SEVERITY SOURCE Drug metoclopramide Other Unknown [place] 5 Allergy/852150013( HCl/[id number](RXNO [facility]) RM) Hospital Repository Drug possible Moderate Nicholas Pomerene Allergy/188838594( anes/88787370(RXNOR ([facility]) M) Modifier) Hospital (Qualifier Repository Value) Environmental possible anesthia Moderate Nicholas Pomerene Allergy/870939721( ([facility]) Modifier) Hospital (Qualifier Repository Value) ENCOUNTERS ENCOUNTERS ADMIT/DISCHARGE ACCOUNT NUMBER ADMITTING ENCOUNTER LOCATION SOURCE CLASS 09/14/2018 [id number] AKSAH HEATH, Inpatient ABuilding:JEANETTE [place] Encounter CURoom: Health 3705Bed: A [facility] Repository 09/13/2018/09/14/19 [id number] PREM [facility] Emergency Buildin Nicholasopal Carbone 19 DO Room: ERBed: [facility] Repository 08/04/2018 [id number] Ambulatory [facility] ding:BFHLAB Repository PAYERS PAYERS ENCOUNTER GUARANTOR PAYER SUBSCRIBER SOURCE 09/14/2018 RICKY [place] [facility]: Insurance:[facility] PART A [facility] [id number] Repository [facility], Number: [place] [id number] [address]Lpk: Date:2018-09-14 [id number] (WP) Name:MMail Code [address], [place] [id number]: 09/14/2018 Secondary [facility] Insurance:MEDICARE [facility]: [facility] PART B INSCOPolicy [id number] Repository [facility] [id number] [address]Zfx: Date:2018-09-14 [id number] (WP) Name:[employer] [address] [address]fr[place], [place] [address]FO: 09/13/2018 RICKY Troy Primary Insurance:[facility] RICKY Peterson Pomdenice HILDERBRANDDOB: MEDICARE HILDERBRANDDOB: [facility] [id number] [facility] [id number] [facility]ly [facility], Number: [facility] Repository [place] [id number], [id number]: Date:Plan Name:[facility] [id number] () 08/04/2018 Ricky Troy Primary Ricky Maciel [id number] Insurance:MEDICARE HilderbrandDOB: [facility] PART A BPolicy Number: [id number] [facility], [id number] [place]ository [place] [address]Zhs: Date:2018-08-04 () 08/04/2018 Secondary NOT GIVENONIEL Maciel Insurance:SELF PAY [facility] Number: Effective Repository Date:2018-08-04
== END ==
PROVIDERS: PCP Family Medicine; Visit Provider Family Medicine
DX: E11.49 Type 2 diabetes mellitus with other diabetic neurological complication (principal); I10 Essential (primary) hypertension; E78.5 Hyperlipidemia, unspecified; R53.1 Weakness; M79.10 Myalgia, unspecified site
CPT/HCPCS: 36415; 80053; 80061; 82550; 84443; 85025; 85652